=== PATIENT | male | born 1955 | race Caucasian/White ===

== ENCOUNTER 2022-10-12 18:02 | Inpatient (IN) ==
--- NOTE | 2022-10-12 18:12 | ED Triage Note ---
Date of Service October 12, 2022 History of Present Illness This patient was briefly evaluated while in triage. An abbreviated physical exam was performed. This patient is a 66-year-old Male who presents to the ED for evaluation of severe abdominal and rectal pain, diarrhea, pain in penis that all started tod ay. Can't pee since this afternoon. No fevers. No blood in stool or urine. No nausea or vomiting. History of prostate cancer, in remission. Physical Exam CONSTITUTIONAL: Appears very uncomfortable from pain, diaphoretic. RESPIRATORY: Clear to auscultation bilaterally. Equal expansion bilaterally. CARDIOVASCULAR: Regular rate and rhythm. GASTROINTESTINAL: TTP in lower abdomen. NEUROLOGIC: Alert and oriented X 4 with normal affect. Initial orders for labs and / or imaging were placed and patient was placed in the waiting area until a bed is available. Please see further documentation for the full ED course.
[2022-10-12 18:40] LABS: Basophils # (auto) 0.08 K/uL (0-0.2); Basophils % (auto) 0.7 %; Eosinophils # (auto) 0.19 K/uL (0-0.50); Eosinophils % (auto) 1.7 %; Hematocrit (blood only) 42.9 % (42.0-52.0); Hemoglobin 15.6 g/dl (14.0-18.0); Immature Granulocytes # (auto) 0.05 K/uL (0.01-0.20); Immature Granulocytes % (auto) 0.4 %; Lymphocytes # (auto) 2.57 K/uL (1.2-3.4); Lymphocytes % (auto) 22.4 %; Mean Corpuscular Hemoglobin 30.8 pg (25.0-34.0); Mean Corpuscular Hgb Conc 36.4 g/dL (32.0-36.0); Mean Corpuscular Volume 84.8 fL (80.0-100.0); Mean Platelet Volume 10.6 fL (9.4-12.4); Monocytes # (auto) 0.88 K/uL (0.11-0.59); Monocytes % (auto) 7.7 %; Neutrophils # (auto) 7.72 K/uL (1.40-6.50); Neutrophils % (auto) 67.1 %; Platelet Count 332 K/uL (130-400); RDW Standard Deviation 36.6 fL (36.4-46.3); Red Blood Count 5.06 M/uL (4.70-6.10); White Blood Count 11.49 K/ul (4.8-10.8)
[2022-10-12 19:15] LABS: Albumin Globulin Ratio 1.5 (0.9-2); Albumin Level 4.8 gm/dl (3.4-5.0); BUN Creatinine Ratio 13.5 (10-20); Bilirubin,Total 0.6 mg/dl (0.2-1.0); Calcium 9.7 mg/dl (8.6-10.3); Creatinine Clr Calc Pharmacy 46.2 ml/min; Est GFR (African American) 55.6 ml/min; Est GFR (Non-African American) 47.9 ml/min; Globulin 3.2 gm/dl (2.5-4.0); Potassium 4.1 mmol/L (3.5-5.1)
[2022-10-12] MEDS ORDERED: ONDANSETRON INJ 2 MG/ML 2 ML VIAL IV STA (19:41)
[2022-10-12] MEDS ORDERED: NovoLIN-R INSULIN PER UNIT CHARGE IV STA (19:41)
[2022-10-12] MEDS ORDERED: MoRPHine SULFATE 2 MG/ML CARP IV STA (19:41)
--- NOTE | 2022-10-12 19:47 | Emergency Department Note ---
History of Present Illness General Chief complaint: Abdominal Pain Stated complaint: ABDOMINAL PAIN Time Seen by Provider: 10/12/22 19:27 Source: patient, family (Son who is at the bedside), RN notes reviewed and old records reviewed Mode of arrival: ambulatory Limitations: no limitations History of Present Illness Maximum Pain Intensity: 10 This patient is a 66-year-old male who has history of prostate cancer in the past as well as diabetes, comes in after having urinary issues. He said that his felt like is been hard to get his stream started and today around 230 could get it going. He says if he bears down he will be able to get it. He is also had some loose stool and diarrhea. He stopped taking all of his medications about a month or so ago after losing 30 pounds. He has had no blood or melena stool . no chest pain. no shortness of breath. no fever chills .no back pain.. Home Medications Medication Instructions Recorded Confirmed Type Lactobacillus acidophilus 1.5 mg 1,000 mmu cells PO DAILY 11/08/19 10/12/22 History (250 million cell) capsule (Probiotic Acidophilus) ascorbic acid (vitamin C) 500 mg 500 mg PO DAILY 11/08/19 10/12/22 History tablet (Vitamin C) aspirin 81 mg tablet,delayed 81 mg PO DAILY 11/08/19 10/12/22 History release (Suma Low Dose Aspirin) atenolol 50 mg tablet 25 mg PO HS 11/08/19 10/12/22 History atorvastatin 40 mg tablet 40 mg PO QAM 11/08/19 10/12/22 History fish, borage, flaxseed oils-omega 1 cap PO DAILY 11/08/19 10/12/22 History 3,6,9 comb no.1 1,200 mg capsule (Jackson 3-6-9) vlrnfueegnh-ucf-xkrepkixa-vitC 1 cap PO DAILY 11/08/19 10/12/22 History capsule insulin aspart U-100 100 unit/mL 30 unit subcut BIDM 11/08/19 10/12/22 History (3 mL) subcutaneous pen (Novolog FlexPen U-100 Insulin aspart) insulin glargine 100 unit/mL 50 unit subcut QAM 11/08/19 10/12/22 History subcutaneous solution (Lantus U-100 Insulin) [id number]-ns-mtncs 300 mcg-K 60 1 tab PO DAILY 11/08/19 10/12/22 History mcg-lycop 600 mcg-lutein 300 mcg tablet (Centrum Silver Men) sildenafil 25 mg tablet (Viagra) 25 mg PO DAILY PRN Erectile 11/08/19 10/12/22 History Dysfunction sitagliptin phosphate 50 1 tab PO BID 11/08/19 10/12/22 History mg-metformin 1,000 mg tablet (Janumet) telmisartan 20 mg tablet 10 mg PO QAM 11/08/19 10/12/22 History zinc 50 mg tablet 50 mg PO DAILY 11/08/19 10/12/22 History Allergies Allergy/AdvReac Type Severity Reaction Status Date / Time hydrocodone AdvReac Unknown itching Verified 10/12/22 18:53 Past Med/Surg History Medical History Diabetes mellitus, type 2 IDDM Hx of brachytherapy Hyperlipidemia Hypertension Prostate CA Surgical History History of cardiac cath no stent. History of cholecystectomy History of herniorrhaphy inguinal (Left) History of right cataract surgery History of tonsillectomy S/P arthroscopy of shoulder left S/P left knee arthroscopy S/P right knee arthroscopy S/P right rotator cuff repair Family History Other No family history of adverse response to anesthesia Social History Smoking Status: Never smoker Tobacco Type: Cigarettes Second Hand Exposure: No; Do You Dip or Chew Tobacco: No; Hx Alcohol Use: Yes Hx Substance Use: No Preferred Language: Yakut Communication Ability: Effective Clinical Trials Data Coordinator Required: No Beliefs That Will Affect Care: None Current Living Situation: Alone Feels Safe at Home: Yes Assistive Devices: Glasses Review of Systems A total of 10 systems reviewed and were otherwise negative Physical Exam Vital Signs Vital Signs - 24 hr 10/12/22 18:07 10/12/22 18:15 10/12/22 18:15 Temperature 37 C Temperature Source Temporal Artery Scan Pulse Rate 70 111 H Pulse Rate [Left Finger] 111 H Pulse Rate from SpO2 Sensor Pulse Rhythm Regular Pulse Rhythm [Left Finger] Regular Pulse Strength [Left Finger] Normal Respiratory Rate 16 24 21 Respiratory Effort / Characteristics Non-Labored Non-Labored Spontaneous Respiratory Depth Normal Normal Respiratory Pattern Regular Blood Pressure 233/137 H Blood Pressure [Left Arm] 198/106 H Blood Pressure Mean 169 Blood Pressure Mean [Left Arm] 136 Blood Pressure Position [Left Arm] Lying Pulse Oximetry 96 97 97 Oxygen Delivery Method Room Air Room Air Sepsis Recent Fever Within 48 Hours No Sepsis New/Unexplained Change in Mental Status No Sepsis Action Taken by Nursing No Action Required 10/12/22 18:33 10/12/22 18:31 10/12/22 18:40 Temperature Temperature Source Pulse Rate 106 H 105 H 105 H Pulse Rate [Left Finger] Pulse Rate from SpO2 Sensor 105 H 105 H Pulse Rhythm Pulse Rhythm [Left Finger] Pulse Strength [Left Finger] Respiratory Rate 17 19 Respiratory Effort / Characteristics Respiratory Depth Respiratory Pattern Blood Pressure Blood Pressure [Left Arm] Blood Pressure Mean Blood Pressure Mean [Left Arm] Blood Pressure Position [Left Arm] Pulse Oximetry 97 97 Oxygen Delivery Method Sepsis Recent Fever Within 48 Hours Sepsis New/Unexplained Change in Mental Status Sepsis Action Taken by Nursing 10/12/22 18:50 10/12/22 19:00 10/12/22 19:00 Temperature Temperature Source Pulse Rate 104 H 103 H Pulse Rate [Left Finger] Pulse Rate from SpO2 Sensor 103 H 103 H Pulse Rhythm Pulse Rhythm [Left Finger] Pulse Strength [Left Finger] Respiratory Rate 21 23 Respiratory Effort / Characteristics Respiratory Depth Respiratory Pattern Blood Pressure 178/99 H Blood Pressure [Left Arm] Blood Pressure Mean 118 Blood Pressure Mean [Left Arm] Blood Pressure Position [Left Arm] Pulse Oximetry 97 96 Oxygen Delivery Method Sepsis Recent Fever Within 48 Hours Sepsis New/Unexplained Change in Mental Status Sepsis Action Taken by Nursing 10/12/22 19:10 10/12/22 19:20 10/12/22 19:30 Temperature Temperature Source Pulse Rate 104 H 105 H Pulse Rate [Left Finger] Pulse Rate from SpO2 Sensor 104 H 104 H Pulse Rhythm Pulse Rhythm [Left Finger] Pulse Strength [Left Finger] Respiratory Rate 18 20 Respiratory Effort / Characteristics Respiratory Depth Respiratory Pattern Blood Pressure 162/96 H Blood Pressure [Left Arm] Blood Pressure Mean 126 Blood Pressure Mean [Left Arm] Blood Pressure Position [Left Arm] Pulse Oximetry 95 97 Oxygen Delivery Method Sepsis Recent Fever Within 48 Hours Sepsis New/Unexplained Change in Mental Status Sepsis Action Taken by Nursing 10/12/22 19:30 10/12/22 19:40 10/12/22 19:50 Temperature Temperature Source Pulse Rate 105 H 105 H 99 H Pulse Rate [Left Finger] Pulse Rate from SpO2 Sensor 104 H Pulse Rhythm Pulse Rhythm [Left Finger] Pulse Strength [Left Finger] Respiratory Rate 32 H 24 21 Respiratory Effort / Characteristics Respiratory Depth Respiratory Pattern Blood Pressure Blood Pressure [Left Arm] Blood Pressure Mean Blood Pressure Mean [Left Arm] Blood Pressure Position [Left Arm] Pulse Oximetry 97 Oxygen Delivery Method Sepsis Recent Fever Within 48 Hours Sepsis New/Unexplained Change in Mental Status Sepsis Action Taken by Nursing 10/12/22 20:00 10/12/22 20:01 10/12/22 20:01 Temperature Temperature Source Pulse Rate 102 H 99 H Pulse Rate [Left Finger] Pulse Rate from SpO2 Sensor Pulse Rhythm Pulse Rhythm [Left Finger] Pulse Strength [Left Finger] Respiratory Rate 18 22 Respiratory Effort / Characteristics Respiratory Depth Respiratory Pattern Blood Pressure 155/102 H Blood Pressure [Left Arm] Blood Pressure Mean 124 Blood Pressure Mean [Left Arm] Blood Pressure Position [Left Arm] Pulse Oximetry Oxygen Delivery Method Sepsis Recent Fever Within 48 Hours Sepsis New/Unexplained Change in Mental Status Sepsis Action Taken by Nursing 10/12/22 21:06 10/12/22 21:07 10/12/22 21:07 Temperature Temperature Source Pulse Rate 103 H Pulse Rate [Left Finger] Pulse Rate from SpO2 Sensor 104 H 103 H Pulse Rhythm Pulse Rhythm [Left Finger] Pulse Strength [Left Finger] Respiratory Rate 24 Respiratory Effort / Characteristics Respiratory Depth Respiratory Pattern Blood Pressure 176/89 H Blood Pressure [Left Arm] Blood Pressure Mean 115 Blood Pressure Mean [Left Arm] Blood Pressure Position [Left Arm] Pulse Oximetry 97 96 Oxygen Delivery Method Sepsis Recent Fever Within 48 Hours Sepsis New/Unexplained Change in Mental Status Sepsis Action Taken by Nursing 10/12/22 21:10 10/12/22 21:38 10/12/22 22:50 Temperature Temperature Source Pulse Rate 105 H 100 H 81 Pulse Rate [Left Finger] Pulse Rate from SpO2 Sensor 104 H Pulse Rhythm Pulse Rhythm [Left Finger] Pulse Strength [Left Finger] Respiratory Rate 20 Respiratory Effort / Characteristics Respiratory Depth Respiratory Pattern Blood Pressure 154/88 H Blood Pressure [Left Arm] Blood Pressure Mean Blood Pressure Mean [Left Arm] Blood Pressure Position [Left Arm] Pulse Oximetry 97 Oxygen Delivery Method Sepsis Recent Fever Within 48 Hours Sepsis New/Unexplained Change in Mental Status Sepsis Action Taken by Nursing General: Well developed well nourished older male who appears in no acute distress, breathing comfortably on room air. Normal speech HEENT: Normal cephalic atraumatic. Pupils are equal round and reactive to light. Extraocular movements are intact. Oropharynx is pink with moist mucous membranes. No swelling of the mouth lips or tongue. Neck: Supple with a midline trachea. No meningeal signs or stiffness, no JVD or bruits. No Stridor. Chest: Clear to auscultation bilaterally. No wheezes or rhonchi. No increased work of breathing. Heart: Regular rate and rhythm without murmurs or gallops. Abdomen: Soft nontender, nondistended without rebound guarding or rigidity. Thornton catheter in place. There is a large amount of yellowish clear urine in the bag greater than 1 L Extremities: No cyanosis clubbing or edema. No calf tenderness or assymetry Spine/Back. Non tender to palpation. No CVA tenderness Skin: Good turgor without rashes. Neurologic exam: Cranial nerves two through 12 are intact. Motor and sensation are intact and symmetrical throughout. Course Administered Medications Insulin Human Regular 250 (units/ Sodium Chloride) 250 mls @ 7.7 mls/hr IV .Q24H [facility]; Protocol Stop: 11/11/22 23:44 Last Admin: 10/12/22 23:56 Dose: 7.7 units/hr, 7.7 mls/hr Documented By: MARY Co-signed By: LUISA Sodium Chloride (Nss 1000ml) 1,000 mls @ 200 mls/hr IV .Q5H ONE Stop: 10/13/22 05:02 Last Admin: 10/13/22 00:33 Dose: 200 mls/hr Documented By: MARY Discontinued Medications Sodium Chloride (Nss 1000ml) 1,000 mls @ 999 mls/hr IV .Q1H1M RADHA Stop: 10/12/22 23:19 Last Infusion: 10/13/22 00:15 Dose: 0 mls/hr Documented By: Admin: 10/12/22 22:44 Dose: 999 mls/hr Documented By: Infusion: 10/12/22 22:44 Dose: 999 mls/hr Documented By: Admin: 10/12/22 21:43 Dose: 999 mls/hr Documented By: PAMELA Cefepime HCl (Maxipime) 2,000 mg in 20 mls @ 5 mls/min IV NOW STA; Protocol Stop: 10/12/22 21:26 Last Admin: 10/12/22 21:38 Dose: 5 mls/min Documented By: HO[employer]LE K[employer]IFE ASSEMBLER Insulin Human Regular (Novolin-R Insulin Per Unit Charge) 10 units IV NOW STA Stop: 10/12/22 19:42 Last Admin: 10/12/22 19:52 Dose: 10 units Documented By: PAMELA Co-signed By: SYLVIA Insulin Human Regular (Novolin-R Bolus From Bag) 7.7 units IV ONE ONE Stop: 10/12/22 23:46 Last Admin: 10/13/22 00:01 Dose: 7.7 units Documented By: MARY Co-signed By: LUISA Metoprolol Tartrate (Metoprolol Tartrate 1 Mg/Ml Vial) 2.5 mg IV NOW STA Stop: 10/12/22 20:04 Last Admin: 10/12/22 21:13 Dose: Not Given Documented By: HO[employer]LE [employer] ASSEMBLER Metoprolol Tartrate (Metoprolol Tartrate 1 Mg/Ml Vial) 2.5 mg IV NOW STA Stop: 10/12/22 21:19 Last Admin: 10/12/22 21:38 Dose: 2.5 mg Documented By: HO[employer]LE [employer] ASSEMBLER Morphine Sulfate (Morphine Sulfate 2 Mg/Ml Carp) 2 mg IV NOW STA Stop: 10/12/22 19:42 Last Admin: 10/12/22 19:52 Dose: 2 mg Documented By: HO[employer] HANDLE KNIFE ASSEMBLER Morphine Sulfate (Morphine Sulfate 4 Mg/Ml 1 Ml Carp\Vial) 4 mg IV NOW STA Stop: 10/12/22 21:21 Last Admin: 10/12/22 21:38 Dose: 4 mg Documented By: HO[employer]IFE ASSEMBLER Ondansetron HCl (Ondansetron Inj 2 Mg/Ml 2 Ml Vial) 4 mg IV NOW STA Stop: 10/12/22 19:42 Last Admin: 10/12/22 19:52 Dose: 4 mg Documented By: HO[employer]IFE ASSEM[employer]ER Phenazopyridine HCl (Phenazopyridine Hcl 100 Mg Tab) 100 mg PO NOW STA Stop: 10/12/22 22:47 Last Admin: 10/12/22 22:59 Dose: 100 mg Documented By: MARY Medical Decision Making Differential Diagnosis Urinary retention, infection, prostate cancer complication, DKA, HH NC, hyperglycemia, electrolyte or metabolic abnormality, infection Medical Records Attestation: I reviewed the patient's medical records. Home Medications Current Medication List: was personally reviewed by me Laboratory Data Attestation: I reviewed the patient's lab results. 10/12/22 18:20 10/12/22 18:20 Lab Results 10/12/22 10/12/22 10/12/22 Range/Units 18:20 18:20 18:20 WBC 11.49 H (4.8-10.8) K/ul RBC 5.06 (4.70-6.10) M/uL Hgb 15.6 (14.0-18.0) g/dl Hct 42.9 (42.0-52.0) % MCV 84.8 (80.0-100.0) fL MCH 30.8 (25.0-34.0) pg MCHC 36.4 H (32.0-36.0) g/dL RDW Std Deviation 36.6 (36.4-46.3) fL RDW Coeff of Myron 12.0 (11.5-14.5) % Plt Count 332 (130-400) K/uL MPV 10.6 (9.4-12.4) fL Immature Gran % (Auto) 0.4 % Neut % (Auto) 67.1 % Lymph % (Auto) 22.4 % Kay % (Auto) 7.7 % Eos % (Auto) 1.7 % Baso % (Auto) 0.7 % Neut # (Auto) 7.72 H (1.40-6.50) K/uL Lymph # (Auto) 2.57 (1.2-3.4) K/uL Kay # (Auto) 0.88 H (0.11-0.59) K/uL Eos # (Auto) 0.19 (0-0.50) K/uL Baso # (Auto) 0.08 (0-0.2) K/uL Immature Gran # (Auto) 0.05 (0.01-0.20) K/uL VBG pH (7.36-7.41) VBG pCO2 (38-50) mmHg VBG pO2 mmHg VBG HCO3 mmol/L VBG O2 Saturation % VBG Base Excess mEq/L Sodium 127 L (136-145) mmol/L Potassium 4.1 (3.5-5.1) mmol/L Chloride 92 L (98-107) mmol/L Carbon Dioxide 16 L (21-32) mmol/L Anion Gap 19 H (3-11) BUN 20 (6-23) mg/dl Creatinine 1.48 H (0.6-1.4) mg/dl Est Cr Clr Drug Dosing 46.2 ml/min Est GFR ( Amer) 55.6 ml/min Est GFR (Non-Af Amer) 47.9 ml/min BUN/Creatinine Ratio 13.5 (10-20) Glucose 828 H* (70-99(Fasting)) mg/dl POC Glucose (70-99) mg/dl Estimat Average Glucose mg/dl Hemoglobin A1c (4.5-5.6) % Osmolality 331 H (280-300) mOsm/kg Lactate (0.4-2.0) mmol/L Calcium 9.7 (8.6-10.3) mg/dl Magnesium 2.0 (1.7-2.4) mg/dl Total Bilirubin 0.6 (0.2-1.0) mg/dl AST 12 L (13-39) U/L ALT 13 (7-52) U/L Alkaline Phosphatase 136 H (34-104) U/L Total Protein 8.0 (6.0-8.3) gm/dl Albumin 4.8 (3.4-5.0) gm/dl Globulin 3.2 (2.5-4.0) gm/dl Albumin/Globulin Ratio 1.5 (0.9-2) Lipase 32 (11-82) U/L Procalcitonin (0-0.5) ng/ml TSH (0.300-4.500) uIu/ml Urine Color Urine Appearance (Clear) Urine pH (4.5-7.5) Ur Specific Grant (1.000-1.030) Urine Protein (Negative) Urine Glucose (UA) (Negative) Urine Ketones (Negative) Urine Blood (Negative) Urine Nitrite (Negative) Urine Bilirubin (Negative) Urine Urobilinogen (Negative) Ur Leukocyte Esterase (Negative) Urine WBC (Auto) (0-5) /hpf Urine RBC (Auto) (0-4) /hpf U Hyaline Cast (Auto) (0-5) /lpf U Epithel Cells (Auto) (0-5) /lpf Urine Bacteria (Auto) (Negative) Urine Yeast Urine Osmolality (500-800) mOsm/kg Ur Random Sodium mmol/L SARS-CoV-2, RNA, NAAT (NEGATIVE) 10/12/22 10/12/22 10/12/22 Range/Units 18:20 18:20 18:20 WBC (4.8-10.8) K/ul RBC (4.70-6.10) M/uL Hgb (14.0-18.0) g/dl Hct (42.0-52.0) % MCV (80.0-100.0) fL MCH (25.0-34.0) pg MCHC (32.0-36.0) g/dL RDW Std Deviation (36.4-46.3) fL RDW Coeff of Myron (11.5-14.5) % Plt Count (130-400) K/uL MPV (9.4-12.4) fL Immature Gran % (Auto) % Neut % (Auto) % Lymph % (Auto) % Kay % (Auto) % Eos % (Auto) % Baso % (Auto) % Neut # (Auto) (1.40-6.50) K/uL Lymph # (Auto) (1.2-3.4) K/uL Kay # (Auto) (0.11-0.59) K/uL Eos # (Auto) (0-0.50) K/uL Baso # (Auto) (0-0.2) K/uL Immature Gran # (Auto) (0.01-0.20) K/uL VBG pH (7.36-7.41) VBG pCO2 (38-50) mmHg VBG pO2 mmHg VBG HCO3 mmol/L VBG O2 Saturation % VBG Base Excess mEq/L Sodium (136-145) mmol/L Potassium (3.5-5.1) mmol/L Chloride (98-107) mmol/L Carbon Dioxide (21-32) mmol/L Anion Gap (3-11) BUN (6-23) mg/dl Creatinine (0.6-1.4) mg/dl Est Cr Clr Drug Dosing ml/min Est GFR ( Amer) ml/min Est GFR (Non-Af Amer) ml/min BUN/Creatinine Ratio (10-20) Glucose (70-99(Fasting)) mg/dl POC Glucose (70-99) mg/dl Estimat Average Glucose 372 mg/dl Hemoglobin A1c 14.6 H (4.5-5.6) % Osmolality (280-300) mOsm/kg Lactate (0.4-2.0) mmol/L Calcium (8.6-10.3) mg/dl Magnesium (1.7-2.4) mg/dl Total Bilirubin (0.2-1.0) mg/dl AST (13-39) U/L ALT (7-52) U/L Alkaline Phosphatase (34-104) U/L Total Protein (6.0-8.3) gm/dl Albumin (3.4-5.0) gm/dl Globulin (2.5-4.0) gm/dl Albumin/Globulin Ratio (0.9-2) Lipase (11-82) U/L Procalcitonin 0.07 (0-0.5) ng/ml TSH 0.506 (0.300-4.500) uIu/ml Urine Color Urine Appearance (Clear) Urine pH (4.5-7.5) Ur Specific Grant (1.000-1.030) Urine Protein (Negative) Urine Glucose (UA) (Negative) Urine Ketones (Negative) Urine Blood (Negative) Urine Nitrite (Negative) Urine Bilirubin (Negative) Urine Urobilinogen (Negative) Ur Leukocyte Esterase (Negative) Urine WBC (Auto) (0-5) /hpf Urine RBC (Auto) (0-4) /hpf U Hyaline Cast (Auto) (0-5) /lpf U Epithel Cells (Auto) (0-5) /lpf Urine Bacteria (Auto) (Negative) Urine Yeast Urine Osmolality (500-800) mOsm/kg Ur Random Sodium mmol/L SARS-CoV-2, RNA, NAAT (NEGATIVE) 10/12/22 10/12/22 10/12/22 Range/Units 19:37 19:37 20:00 WBC (4.8-10.8) K/ul RBC (4.70-6.10) M/uL Hgb (14.0-18.0) g/dl Hct (42.0-52.0) % MCV (80.0-100.0) fL MCH (25.0-34.0) pg MCHC (32.0-36.0) g/dL RDW Std Deviation (36.4-46.3) fL RDW Coeff of Myron (11.5-14.5) % Plt Count (130-400) K/uL MPV (9.4-12.4) fL Immature Gran % (Auto) % Neut % (Auto) % Lymph % (Auto) % Kay % (Auto) % Eos % (Auto) % Baso % (Auto) % Neut # (Auto) (1.40-6.50) K/uL Lymph # (Auto) (1.2-3.4) K/uL Kay # (Auto) (0.11-0.59) K/uL Eos # (Auto) (0-0.50) K/uL Baso # (Auto) (0-0.2) K/uL Immature Gran # (Auto) (0.01-0.20) K/uL VBG pH 7.44 H (7.36-7.41) VBG pCO2 31 L (38-50) mmHg VBG pO2 38 mmHg VBG HCO3 21 mmol/L VBG O2 Saturation 60.7 % VBG Base Excess -2.1 mEq/L Sodium (136-145) mmol/L Potassium (3.5-5.1) mmol/L Chloride (98-107) mmol/L Carbon Dioxide (21-32) mmol/L Anion Gap (3-11) BUN (6-23) mg/dl Creatinine (0.6-1.4) mg/dl Est Cr Clr Drug Dosing ml/min Est GFR ( Amer) ml/min Est GFR (Non-Af Amer) ml/min BUN/Creatinine Ratio (10-20) Glucose (70-99(Fasting)) mg/dl POC Glucose (70-99) mg/dl Estimat Average Glucose mg/dl Hemoglobin A1c (4.5-5.6) % Osmolality (280-300) mOsm/kg Lactate 5.5 H* (0.4-2.0) mmol/L Calcium (8.6-10.3) mg/dl Magnesium (1.7-2.4) mg/dl Total Bilirubin (0.2-1.0) mg/dl AST (13-39) U/L ALT (7-52) U/L Alkaline Phosphatase (34-104) U/L Total Protein (6.0-8.3) gm/dl Albumin (3.4-5.0) gm/dl Globulin (2.5-4.0) gm/dl Albumin/Globulin Ratio (0.9-2) Lipase (11-82) U/L Procalcitonin (0-0.5) ng/ml TSH (0.300-4.500) uIu/ml Urine Color Yellow Urine Appearance Clear (Clear) Urine pH 5.5 (4.5-7.5) Ur Specific Grant 1.033 H (1.000-1.030) Urine Protein Trace H (Negative) Urine Glucose (UA) 3+ H (Negative) Urine Ketones Trace H (Negative) Urine Blood 3+ H (Negative) Urine Nitrite Negative (Negative) Urine Bilirubin Negative (Negative) Urine Urobilinogen Negative (Negative) Ur Leukocyte Esterase 1+ H (Negative) Urine WBC (Auto) >30 H (0-5) /hpf Urine RBC (Auto) >30 H (0-4) /hpf U Hyaline Cast (Auto) 1-5 (0-5) /lpf U Epithel Cells (Auto) 0-5 (0-5) /lpf Urine Bacteria (Auto) Negative (Negative) Urine Yeast Not Reportable Urine Osmolality (500-800) mOsm/kg Ur Random Sodium mmol/L SARS-CoV-2, RNA, NAAT (NEGATIVE) 10/12/22 10/12/22 10/12/22 Range/Units 20:00 20:00 20:00 WBC (4.8-10.8) K/ul RBC (4.70-6.10) M/uL Hgb (14.0-18.0) g/dl Hct (42.0-52.0) % MCV (80.0-100.0) fL MCH (25.0-34.0) pg MCHC (32.0-36.0) g/dL RDW Std Deviation (36.4-46.3) fL RDW Coeff of Myron (11.5-14.5) % Plt Count (130-400) K/uL MPV (9.4-12.4) fL Immature Gran % (Auto) % Neut % (Auto) % Lymph % (Auto) % Kay % (Auto) % Eos % (Auto) % Baso % (Auto) % Neut # (Auto) (1.40-6.50) K/uL Lymph # (Auto) (1.2-3.4) K/uL Kay # (Auto) (0.11-0.59) K/uL Eos # (Auto) (0-0.50) K/uL Baso # (Auto) (0-0.2) K/uL Immature Gran # (Auto) (0.01-0.20) K/uL VBG pH (7.36-7.41) VBG pCO2 (38-50) mmHg VBG pO2 mmHg VBG HCO3 mmol/L VBG O2 Saturation % VBG Base Excess mEq/L Sodium (136-145) mmol/L Potassium (3.5-5.1) mmol/L Chloride (98-107) mmol/L Carbon Dioxide (21-32) mmol/L Anion Gap (3-11) BUN (6-23) mg/dl Creatinine (0.6-1.4) mg/dl Est Cr Clr Drug Dosing ml/min Est GFR ( Amer) ml/min Est GFR (Non-Af Amer) ml/min BUN/Creatinine Ratio (10-20) Glucose (70-99(Fasting)) mg/dl POC Glucose (70-99) mg/dl Estimat Average Glucose mg/dl Hemoglobin A1c (4.5-5.6) % Osmolality (280-300) mOsm/kg Lactate (0.4-2.0) mmol/L Calcium (8.6-10.3) mg/dl Magnesium (1.7-2.4) mg/dl Total Bilirubin (0.2-1.0) mg/dl AST (13-39) U/L ALT (7-52) U/L Alkaline Phosphatase (34-104) U/L Total Protein (6.0-8.3) gm/dl Albumin (3.4-5.0) gm/dl Globulin (2.5-4.0) gm/dl Albumin/Globulin Ratio (0.9-2) Lipase (11-82) U/L Procalcitonin (0-0.5) ng/ml TSH (0.300-4.500) uIu/ml Urine Color Urine Appearance (Clear) Urine pH (4.5-7.5) Ur Specific Grant (1.000-1.030) Urine Protein (Negative) Urine Glucose (UA) (Negative) Urine Ketones (Negative) Urine Blood (Negative) Urine Nitrite (Negative) Urine Bilirubin (Negative) Urine Urobilinogen (Negative) Ur Leukocyte Esterase (Negative) Urine WBC (Auto) (0-5) /hpf Urine RBC (Auto) (0-4) /hpf U Hyaline Cast (Auto) (0-5) /lpf U Epithel Cells (Auto) (0-5) /lpf Urine Bacteria (Auto) (Negative) Urine Yeast Urine Osmolality 568 (500-800) mOsm/kg Ur Random Sodium 29 mmol/L SARS-CoV-2, RNA, NAAT NEGATIVE (NEGATIVE) 10/12/22 Range/Units 21:10 WBC (4.8-10.8) K/ul RBC (4.70-6.10) M/uL Hgb (14.0-18.0) g/dl Hct (42.0-52.0) % MCV (80.0-100.0) fL MCH (25.0-34.0) pg MCHC (32.0-36.0) g/dL RDW Std Deviation (36.4-46.3) fL RDW Coeff of Myron (11.5-14.5) % Plt Count (130-400) K/uL MPV (9.4-12.4) fL Immature Gran % (Auto) % Neut % (Auto) % Lymph % (Auto) % Kay % (Auto) % Eos % (Auto) % Baso % (Auto) % Neut # (Auto) (1.40-6.50) K/uL Lymph # (Auto) (1.2-3.4) K/uL Kay # (Auto) (0.11-0.59) K/uL Eos # (Auto) (0-0.50) K/uL Baso # (Auto) (0-0.2) K/uL Immature Gran # (Auto) (0.01-0.20) K/uL VBG pH (7.36-7.41) VBG pCO2 (38-50) mmHg VBG pO2 mmHg VBG HCO3 mmol/L VBG O2 Saturation % VBG Base Excess mEq/L Sodium (136-145) mmol/L Potassium (3.5-5.1) mmol/L Chloride (98-107) mmol/L Carbon Dioxide (21-32) mmol/L Anion Gap (3-11) BUN (6-23) mg/dl Creatinine (0.6-1.4) mg/dl Est Cr Clr Drug Dosing ml/min Est GFR ( Amer) ml/min Est GFR (Non-Af Amer) ml/min BUN/Creatinine Ratio (10-20) Glucose (70-99(Fasting)) mg/dl POC Glucose 479 H* (70-99) mg/dl Estimat Average Glucose mg/dl Hemoglobin A1c (4.5-5.6) % Osmolality (280-300) mOsm/kg Lactate (0.4-2.0) mmol/L Calcium (8.6-10.3) mg/dl Magnesium (1.7-2.4) mg/dl Total Bilirubin (0.2-1.0) mg/dl AST (13-39) U/L ALT (7-52) U/L Alkaline Phosphatase (34-104) U/L Total Protein (6.0-8.3) gm/dl Albumin (3.4-5.0) gm/dl Globulin (2.5-4.0) gm/dl Albumin/Globulin Ratio (0.9-2) Lipase (11-82) U/L Procalcitonin (0-0.5) ng/ml TSH (0.300-4.500) uIu/ml Urine Color Urine Appearance (Clear) Urine pH (4.5-7.5) Ur Specific Grant (1.000-1.030) Urine Protein (Negative) Urine Glucose (UA) (Negative) Urine Ketones (Negative) Urine Blood (Negative) Urine Nitrite (Negative) Urine Bilirubin (Negative) Urine Urobilinogen (Negative) Ur Leukocyte Esterase (Negative) Urine WBC (Auto) (0-5) /hpf Urine RBC (Auto) (0-4) /hpf U Hyaline Cast (Auto) (0-5) /lpf U Epithel Cells (Auto) (0-5) /lpf Urine Bacteria (Auto) (Negative) Urine Yeast Urine Osmolality (500-800) mOsm/kg Ur Random Sodium mmol/L SARS-CoV-2, RNA, NAAT (NEGATIVE) Imaging Data Attestation: I personally reviewed and interpreted this imaging study as follows: My Impression: CT stone studyno obstructive uropathy seen Radiologist's Impression: Abdomen/Pelvis CT 10/12/22 19:42 Exam(s): CT ABDOMEN + PELVIS Without Contrast EXAM: CT Abdomen and Pelvis Without Intravenous Contrast CLINICAL HISTORY: Reason for exam: urinary retention, eval for obs uropathy. TECHNIQUE: Axial computed tomography images of the abdomen and pelvis without intravenous contrast. CTDI is 20.05 mGy and DLP is 948.03 mGy-cm. Automated exposure control was utilized for the study. A dose lowering technique was utilized adhering to the principles of ALARA. COMPARISON: No relevant prior studies available. FINDINGS: Lung bases: Unremarkable. No mass. No consolidation. ABDOMEN: Liver: Unremarkable. Gallbladder and bile ducts: Cholecystectomy. No ductal dilation. Pancreas: Unremarkable. No ductal dilation. Spleen: Unremarkable. No splenomegaly. Adrenals: Unremarkable. No mass. Kidneys and ureters: Unremarkable. No obstructing stones. No hydronephrosis. Stomach and bowel: Diverticulosis, without acute diverticulitis. No small bowel obstruction. No free intraperitoneal air. PELVIS: Appendix: Normal appendix. Bladder: Thornton catheter terminates in a decompressed urinary bladder with mild wall thickening. Correlate with urinalysis to exclude UTI. No stones. Reproductive: Prostate fiduciary markers. ABDOMEN and PELVIS: Intraperitoneal space: Unremarkable. No free air. No significant fluid collection. Bones/joints: Degenerative changes of the spine. No acute fracture. No dislocation. Soft tissues: Unremarkable. Vasculature: Atherosclerotic changes of the aorta. No abdominal aortic aneurysm. Lymph nodes: Unremarkable. No enlarged lymph nodes. IMPRESSION: 1. Normal appendix. 2. Thornton catheter terminates in a decompressed urinary bladder with mild wall thickening. Correlate with urinalysis to exclude UTI. 3. Cholecystectomy. 4. Diverticulosis, without acute diverticulitis. No small bowel obstruction. No free intraperitoneal air. Electronically signed by: Nelson Sung MD 10/12/22 21:54 PM [facility] Narrative This patient comes in as described above. He was placed in room B9. The nurse asked me to see him as he was having a lot of pain his blood sugar was 838. He is having some discomfort where the catheter is appears to be drained at this point. I did give him morphine 2 mg IV and Zofran 4 mg IV for pain and nausea management. I Also ordered 1 L IV normal saline bolus and 10 units of insulin insulin IV to be given to help lower his blood sugar. A VBG was added. His white count is mildly elevated. He does have acidosis and likely has a degree of DKA. I do think he will need to be admitted. I have COVID tested him and also ordered a CAT scan. The patient's blood sugar is trending downward and is in the 400s. CAT scan does not show any acute abnormality or infection. COVID testing was negative.. VBG shows a normal pH. I do think that he needs to be admitted/evaluated for further blood sugar management. His lactic acid was elevated at 5.5 which I think was most likely from stress and dehydration and it is trending downward significantly at 2.4 upon reevaluation. Pernell consulted and discussed case Dr. Garcia who saw the patient in ER for these Continuous manager presentation: Orders placed in EMR for continuous cardiac monitoring: Upon my evaluation patient noted to be normal sinus rhythm rate of 90 upon reevaluation it is trending downward significantly at 2.4. Impression & Plan DKA (diabetic ketoacidosis), Acute urinary retention, History of prostate cancer, Acute dehydration, Elevated lactic acid level, Lab test negative for COVID-19 virus Discharge Plan Visit Data Chief Complaint: Abdominal Pain Stated Complaint: ABDOMINAL PAIN ED Provider: Andrea Colon Discharge Problem: DKA (diabetic ketoacidosis), Acute urinary retention, History of prostate cancer, Acute dehydration, Elevated lactic acid level, Lab test negative for COVID-19 virus Discharge Instructions Interventions: ED Discharge Assessment Last Done: 10/13/22 00:08
[2022-10-12 19:53] LABS: Base Excess VBG -2.1 mEq/L; HCO3 VBG 21 mmol/L; Oxygen Saturation VBG 60.7 %; PCO2 VBG 31 mmHg (38-50); PO2 VBG 38 mmHg; pH VBG 7.44 (7.36-7.41)
[2022-10-12] MEDS ORDERED: METOPROLOL TARTRATE 1 MG/ML VIAL IV STA ×2 (20:03→21:18)
[2022-10-12 20:16] LABS: Appearance Urine Clear (Clear); Bacteria Urine Automated Negative (Negative); Bilirubin Urine Negative (Negative); Blood Urine 3+ (Negative); Color Urine Yellow; Epithelial Cell Urine Auto 0-5 /lpf (0-5); Glucose Urine UA 3+ (Negative); Ketones Urine Trace (Negative); Leukocyte Esterase Urine 1+ (Negative); Nitrite Urine Negative (Negative); Protein Urine Trace (Negative); Specific Gravity Urine 1.033 (1.000-1.030); Urobilinogen Urine Negative (Negative); WBC Urine Automated >30 /hpf (0-5); pH Urine 5.5 (4.5-7.5)
[2022-10-12 20:31] LABS: RBC Urine Automated >30 /hpf (0-4)
[2022-10-12 20:42] LABS: Estimated Average Glucose 372 mg/dl; Hemoglobin A1C 14.6 % (4.5-5.6)
[2022-10-12] MEDS ORDERED: oxyCODONE HCL IR 5 MG TAB (IMMEDIATE RELEASE) PO PRN (21:20)
[2022-10-12] MEDS ORDERED: PROMETHAZINE HCL 12.5 MG in SODIUM CHLORIDE 0.9% 50 ML IV PRN (21:20)
[2022-10-12] MEDS ORDERED: MoRPHine SULFATE 4 MG/ML 1 ML CARP\\VIAL IV STA (21:20)
[2022-10-12] MEDS ORDERED: CEFEPIME 2,000 MG/20 ML VIAL IV STA (21:23)
[2022-10-12] MEDS: SODIUM CHLORIDE 0.9% 1000ML 1,000 ML IV SCH ×2 (21:43→22:44)
--- NOTE | 2022-10-12 21:56 | CT Scan Report ---
Exam(s): CT ABDOMEN + PELVIS Without Contrast EXAM: CT Abdomen and Pelvis Without Intravenous Contrast CLINICAL HISTORY: Reason for exam: urinary retention, eval for obs uropathy. TECHNIQUE: Axial computed tomography images of the abdomen and pelvis without intravenous contrast. CTDI is 20.05 mGy and DLP is 948.03 mGy-cm. Automated exposure control was utilized for the study. A dose lowering technique was utilized adhering to the principles of ALARA. COMPARISON: No relevant prior studies available. FINDINGS: Lung bases: Unremarkable. No mass. No consolidation. ABDOMEN: Liver: Unremarkable. Gallbladder and bile ducts: Cholecystectomy. No ductal dilation. Pancreas: Unremarkable. No ductal dilation. Spleen: Unremarkable. No splenomegaly. Adrenals: Unremarkable. No mass. Kidneys and ureters: Unremarkable. No obstructing stones. No hydronephrosis. Stomach and bowel: Diverticulosis, without acute diverticulitis. No small bowel obstruction. No free intraperitoneal air. PELVIS: Appendix: Normal appendix. Bladder: Thornton catheter terminates in a decompressed urinary bladder with mild wall thickening. Correlate with urinalysis to exclude UTI. No stones. Reproductive: Prostate fiduciary markers. ABDOMEN and PELVIS: Intraperitoneal space: Unremarkable. No free air. No significant fluid collection. Bones/joints: Degenerative changes of the spine. No acute fracture. No dislocation. Soft tissues: Unremarkable. Vasculature: Atherosclerotic changes of the aorta. No abdominal aortic aneurysm. Lymph nodes: Unremarkable. No enlarged lymph nodes. IMPRESSION: 1. Normal appendix. 2. Thornton catheter terminates in a decompressed urinary bladder with mild wall thickening. Correlate with urinalysis to exclude UTI. 3. Cholecystectomy. 4. Diverticulosis, without acute diverticulitis. No small bowel obstruction. No free intraperitoneal air. Electronically signed by: Nelson Sung MD 10/12/22 21:54 PM
[2022-10-12] MEDS ORDERED: PHENAZOPYRIDINE HCL 100 MG TAB PO STA (22:46)
[2022-10-12] MEDS ORDERED: LORazepam 0.5 MG TAB PO PRN (22:48)
[2022-10-12] MEDS ORDERED: HYDROmorphone INJ 0.5 MG/0.5 ML SYR IV PRN (22:48)
--- NOTE | 2022-10-12 22:48 | History & Physical Report ---
Date of Service October 12, 2022 Assessment & Plan (1) Hyperglycemic crisis in diabetes mellitus: Plan: HHS/mild DKA combo History DM 2 insulin requiring, medical noncompliance Current hemoglobin A1c of 14.6 Severe sepsis (SIRS plus lactic acidosis plus ARF from complicated UTI contributory factor to hyperglycemic crisis AGMA secondary to above Hypertensive crisis secondary to discomfort/illness/medical noncompliance hx nonocclusive CAD hyperlipidemia, was on statin medications a few months ago hx prostate cancer sp radiation Medical telemetry IV insulin, IVF Pharmacy glycemic control consultation, DM education Monitor creatinine, lactic acid response to IVF CS, Cefepime Urology consult Re: Urinary retention IV Lopressor 1 dose now for hypertensive crisis Resume patient home beta-idalia and eventually prior home ARB rx once creatinine within normal limits Patient amenable to resuming aspirin and statin medications for secondary CAD prevention. DVT prophylaxis. Lovenox subcu Full code Total critical care time was 45 minutes. Text document was generated using [employer] voice recognition software. It may contain grammatical or spelling errors. Kindly contact undersigned for clarification of any documentation item in question. History of Present Illness Chief Complaint: Urinary retention, bladder/penile pain Primary Care Provider: Dipak Pinedo MD History obtained from patient, family, and records. Medical history significant for nonocclusive CAD, hypertension, hyperlipidemia, DM 2 insulin requiring, prostate cancer postradiation, anxiety disorder, medication noncompliance. Patient stopped taking all his medications 3 months ago due to financial constraints and political reasons. He thought he could stop his insulin because he had significant weight loss few months ago. Patient noted worsening urinary retention today. Urinary retention usually relieved by bearing down on the commode. Usual loose stools. No headache, no chest pain, no SOB. Worsening dysuria. No hematuria. Patient felt warm. SBP to 230s upon arrival at the ER. BSG noted to be 800s at the ER. IV insulin initiated at the ER. Thornton catheter inserted after bladder residual noted to be greater than 800 cc. 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 Allergies Allergy/AdvReac Type Severity Reaction Status Date / Time hydrocodone AdvReac Unknown itching Verified 10/12/22 18:53 Home Medications Medication Instructions Recorded Confirmed Type Lactobacillus acidophilus 1.5 mg 1,000 mmu cells PO DAILY 11/08/19 10/12/22 History (250 million cell) capsule (Probiotic Acidophilus) ascorbic acid (vitamin C) 500 mg 500 mg PO DAILY 11/08/19 10/12/22 History tablet (Vitamin C) aspirin 81 mg tablet,delayed 81 mg PO DAILY 11/08/19 10/12/22 History release (Suma Low Dose Aspirin) atenolol 50 mg tablet 25 mg PO HS 11/08/19 10/12/22 History atorvastatin 40 mg tablet 40 mg PO QAM 11/08/19 10/12/22 History fish, borage, flaxseed oils-omega 1 cap PO DAILY 11/08/19 10/12/22 History 3,6,9 comb no.1 1,200 mg capsule ([place] 3-6-9) zqpiwbavuat-goo-sklogxljt-vitC 1 cap PO DAILY 11/08/19 10/12/22 History capsule insulin aspart U-100 100 unit/mL 30 unit subcut BIDM 11/08/19 10/12/22 History (3 mL) subcutaneous pen (Novolog FlexPen U-100 Insulin aspart) insulin glargine 100 unit/mL 50 unit subcut QAM 11/08/19 10/12/22 History subcutaneous solution (Lantus U-100 Insulin) onlxowth-lr-qmjed 300 mcg-K 60 1 tab PO DAILY 11/08/19 10/12/22 History mcg-lycop 600 mcg-lutein 300 mcg tablet (Centrum Silver Men) sildenafil 25 mg tablet (Viagra) 25 mg PO DAILY PRN Erectile 11/08/19 10/12/22 History Dysfunction sitagliptin phosphate 50 1 tab PO BID 11/08/19 10/12/22 History mg-metformin 1,000 mg tablet (Janumet) telmisartan 20 mg tablet 10 mg PO QAM 11/08/19 10/12/22 History zinc 50 mg tablet 50 mg PO DAILY 11/08/19 10/12/22 History Past Med/Surg History Medical History Diabetes mellitus, type 2 IDDM Hx of brachytherapy Hyperlipidemia Hypertension Prostate CA Surgical History History of cardiac cath no stent. History of cholecystectomy History of herniorrhaphy inguinal (Left) History of right cataract surgery History of tonsillectomy S/P arthroscopy of shoulder left S/P left knee arthroscopy S/P right knee arthroscopy S/P right rotator cuff repair Family History Other No family history of adverse response to anesthesia Social History Smoking Status: Former smoker Tobacco Type: Cigarettes Second Hand Exposure: No; Do You Dip or Chew Tobacco: No; Hx Alcohol Use: No Hx Substance Use: No Preferred Language: Luxembourgish Communication Ability: Effective Specimen Transporter Required: No Beliefs That Will Affect Care: None Current Living Situation: Alone Current Living Situation Comment: with son Feels Safe at Home: Yes Assistive Devices: Glasses Review of Systems Review of Systems: As per HPI, all other systems reviewed and negative Physical Exam Physical Exam: GENERAL: Comfortable, anxious, no respiratory distress SKIN: Normal color, warm HEENT: [place] palpebral conjunctivae, no ptosis, dry buccal mucosa NECK : Supple, no tenderness CHEST : CTA, no tenderness HEART : RRR, no obvious murmurs ABDOMEN: Some distention, minimal hypogastric tenderness EXTREMITIES : No LE swelling/tenderness, no other conspicuous deformities noted NEUROLOGIC : Coherent, no facial asymmetry, no other gross focality Results & Data Results & Data Vital Signs (Past 12 Hours) Vital Signs Temp Pulse Pulse Resp BP BP Pulse Ox 10/12/22 21:38 100 H 154/88 H 10/12/22 21:10 105 H 20 97 10/12/22 21:07 176/89 H 10/12/22 21:07 103 H 24 96 10/12/22 21:06 97 10/12/22 20:01 99 H 22 10/12/22 20:01 155/102 H 10/12/22 20:00 102 H 18 10/12/22 19:50 99 H 21 10/12/22 19:40 105 H 24 10/12/22 19:30 105 H 32 H 97 10/12/22 19:30 162/96 H 10/12/22 19:20 105 H 20 97 10/12/22 19:10 104 H 18 95 10/12/22 19:00 103 H 23 96 10/12/22 19:00 178/99 H 10/12/22 18:50 104 H 21 97 10/12/22 18:40 105 H 19 97 10/12/22 18:31 105 H 17 97 10/12/22 18:33 106 H 10/12/22 18:15 111 H 21 97 10/12/22 18:15 111 H 24 198/106 H 97 10/12/22 18:07 37 C 70 16 233/137 H 96 O2 Del Method 10/12/22 21:38 10/12/22 21:10 10/12/22 21:07 10/12/22 21:07 10/12/22 21:06 10/12/22 20:01 10/12/22 20:01 10/12/22 20:00 10/12/22 19:50 10/12/22 19:40 10/12/22 19:30 10/12/22 19:30 10/12/22 19:20 10/12/22 19:10 10/12/22 19:00 10/12/22 19:00 10/12/22 18:50 10/12/22 18:40 10/12/22 18:31 10/12/22 18:33 10/12/22 18:15 Room Air 10/12/22 18:15 Room Air 10/12/22 18:07 Laboratory Results Laboratory Results WBC 11.49 K/ul (4.8-10.8) H 10/12/22 18:20 RBC 5.06 M/uL (4.70-6.10) 10/12/22 18:20 Hgb 15.6 g/dl (14.0-18.0) 10/12/22 18:20 Hct 42.9 % (42.0-52.0) 10/12/22 18:20 MCV 84.8 fL (80.0-100.0) 10/12/22 18:20 MCH 30.8 pg (25.0-34.0) 10/12/22 18:20 MCHC 36.4 g/dL (32.0-36.0) H 10/12/22 18:20 RDW Std Deviation 36.6 fL (36.4-46.3) 10/12/22 18:20 RDW Coeff of Myron 12.0 % (11.5-14.5) 10/12/22 18:20 Plt Count 332 K/uL (130-400) 10/12/22 18:20 MPV 10.6 fL (9.4-12.4) 10/12/22 18:20 Immature Gran % (Auto) 0.4 % 10/12/22 18:20 Neut % (Auto) 67.1 % 10/12/22 18:20 Lymph % (Auto) 22.4 % 10/12/22 18:20 [place] % (Auto) 7.7 % 10/12/22 18:20 Eos % (Auto) 1.7 % 10/12/22 18:20 Baso % (Auto) 0.7 % 10/12/22 18:20 Neut # (Auto) 7.72 K/uL (1.40-6.50) H 10/12/22 18:20 Lymph # (Auto) 2.57 K/uL (1.2-3.4) 10/12/22 18:20 [place] # (Auto) 0.88 K/uL (0.11-0.59) H 10/12/22 18:20 Eos # (Auto) 0.19 K/uL (0-0.50) 10/12/22 18:20 Baso # (Auto) 0.08 K/uL (0-0.2) 10/12/22 18:20 Immature Gran # (Auto) 0.05 K/uL (0.01-0.20) 10/12/22 18:20 VBG pH 7.44 (7.36-7.41) H 10/12/22 19:37 VBG pCO2 31 mmHg (38-50) L 10/12/22 19:37 VBG pO2 38 mmHg 10/12/22 19:37 VBG HCO3 21 mmol/L 10/12/22 19:37 VBG O2 Saturation 60.7 % 10/12/22 19:37 VBG Base Excess -2.1 mEq/L 10/12/22 19:37 Sodium 127 mmol/L (136-145) L 10/12/22 18:20 Potassium 4.1 mmol/L (3.5-5.1) 10/12/22 18:20 Chloride 92 mmol/L (98-107) L 10/12/22 18:20 Carbon Dioxide 16 mmol/L (21-32) L 10/12/22 18:20 Anion Gap 19 (3-11) H 10/12/22 18:20 BUN 20 mg/dl (6-23) 10/12/22 18:20 Creatinine 1.48 mg/dl (0.6-1.4) H 10/12/22 18:20 Est Cr Clr Drug Dosing 46.2 ml/min 10/12/22 18:20 Est GFR ( Amer) 55.6 ml/min 10/12/22 18:20 Est GFR (Non-Af Amer) 47.9 ml/min 10/12/22 18:20 BUN/Creatinine Ratio 13.5 (10-20) 10/12/22 18:20 Glucose 828 mg/dl (70-99(Fasting)) H* 10/12/22 18:20 POC Glucose 479 mg/dl (70-99) H* 10/12/22 21:10 Estimat Average Glucose 372 mg/dl 10/12/22 18:20 Hemoglobin A1c 14.6 % (4.5-5.6) H 10/12/22 18:20 Osmolality 331 mOsm/kg (280-300) H 10/12/22 18:20 Lactate 5.5 mmol/L (0.4-2.0) H* 10/12/22 19:37 Calcium 9.7 mg/dl (8.6-10.3) 10/12/22 18:20 Magnesium 2.0 mg/dl (1.7-2.4) 10/12/22 18:20 Total Bilirubin 0.6 mg/dl (0.2-1.0) 10/12/22 18:20 AST 12 U/L (13-39) L 10/12/22 18:20 ALT 13 U/L (7-52) 10/12/22 18:20 Alkaline Phosphatase 136 U/L (34-104) H 10/12/22 18:20 Total Protein 8.0 gm/dl (6.0-8.3) 10/12/22 18:20 Albumin 4.8 gm/dl (3.4-5.0) 10/12/22 18:20 Globulin 3.2 gm/dl (2.5-4.0) 10/12/22 18:20 Albumin/Globulin Ratio 1.5 (0.9-2) 10/12/22 18:20 Lipase 32 U/L (11-82) 10/12/22 18:20 Procalcitonin 0.07 ng/ml (0-0.5) 10/12/22 18:20 TSH 0.506 uIu/ml (0.300-4.500) 10/12/22 18:20 Urine Color Yellow 10/12/22 20:00 Urine Appearance Clear (Clear) 10/12/22 20:00 Urine pH 5.5 (4.5-7.5) 10/12/22 20:00 Ur Specific [place] 1.033 (1.000-1.030) H 10/12/22 20:00 Urine Protein Trace (Negative) H 10/12/22 20:00 Urine Glucose (UA) 3+ (Negative) H 10/12/22 20:00 Urine Ketones Trace (Negative) H 10/12/22 20:00 Urine Blood 3+ (Negative) H 10/12/22 20:00 Urine Nitrite Negative (Negative) 10/12/22 20:00 Urine Bilirubin Negative (Negative) 10/12/22 20:00 Urine Urobilinogen Negative (Negative) 10/12/22 20:00 Ur Leukocyte Esterase 1+ (Negative) H 10/12/22 20:00 Urine WBC (Auto) >30 /hpf (0-5) H 10/12/22 20:00 Urine RBC (Auto) >30 /hpf (0-4) H 10/12/22 20:00 U Hyaline Cast (Auto) 1-5 /lpf (0-5) 10/12/22 20:00 U Epithel Cells (Auto) 0-5 /lpf (0-5) 10/12/22 20:00 Urine Bacteria (Auto) Negative (Negative) 10/12/22 20:00 Urine Yeast Not Reportable 10/12/22 20:00 Urine Osmolality 568 mOsm/kg (500-800) 10/12/22 20:00 Ur Random Sodium 29 mmol/L 10/12/22 20:00 SARS-CoV-2, RNA, NAAT NEGATIVE (NEGATIVE) 10/12/22 20:00 Impressions Abdomen/Pelvis CT 10/12/22 19:42 Exam(s): CT ABDOMEN + PELVIS Without Contrast EXAM: CT Abdomen and Pelvis Without Intravenous Contrast CLINICAL HISTORY: Reason for exam: urinary retention, eval for obs uropathy. TECHNIQUE: Axial computed tomography images of the abdomen and pelvis without intravenous contrast. CTDI is 20.05 mGy and DLP is 948.03 mGy-cm. Automated exposure control was utilized for the study. A dose lowering technique was utilized adhering to the principles of ALARA. COMPARISON: No relevant prior studies available. FINDINGS: Lung bases: Unremarkable. No mass. No consolidation. ABDOMEN: Liver: Unremarkable. Gallbladder and bile ducts: Cholecystectomy. No ductal dilation. Pancreas: Unremarkable. No ductal dilation. Spleen: Unremarkable. No splenomegaly. Adrenals: Unremarkable. No mass. Kidneys and ureters: Unremarkable. No obstructing stones. No hydronephrosis. Stomach and bowel: Diverticulosis, without acute diverticulitis. No small bowel obstruction. No free intraperitoneal air. PELVIS: Appendix: Normal appendix. Bladder: Thornton catheter terminates in a decompressed urinary bladder with mild wall thickening. Correlate with urinalysis to exclude UTI. No stones. Reproductive: Prostate fiduciary markers. ABDOMEN and PELVIS: Intraperitoneal space: Unremarkable. No free air. No significant fluid collection. Bones/joints: Degenerative changes of the spine. No acute fracture. No dislocation. Soft tissues: Unremarkable. Vasculature: Atherosclerotic changes of the aorta. No abdominal aortic aneurysm. Lymph nodes: Unremarkable. No enlarged lymph nodes. IMPRESSION: 1. Normal appendix. 2. Thornton catheter terminates in a decompressed urinary bladder with mild wall thickening. Correlate with urinalysis to exclude UTI. 3. Cholecystectomy. 4. Diverticulosis, without acute diverticulitis. No small bowel obstruction. No free intraperitoneal air. Electronically signed by: Nelson Sung MD 10/12/22 21:54 PM Diagnostic Findings Chest x-ray as per my interpretation atelectasis, elevated right hemidiaphragm, prominent aortic knob EKG as per my interpretation :Rate 100, NSR, LAD LAFB, no ischemia
[2022-10-12 23:15] LABS: Base Excess VBG -2.6 mEq/L; HCO3 VBG 23 mmol/L; Oxygen Saturation VBG < 60.0 %; PCO2 VBG 43 mmHg (38-50); PO2 VBG 32 mmHg; pH VBG 7.34 (7.36-7.41)
[2022-10-12] MEDS ORDERED: DEXTROSE 50% 50 ML SYRINGE IV PRN (23:32)
[2022-10-12] MEDS ORDERED: GLUCOSE 40% GEL 15 GM TUBE PO PRN (23:32)
[2022-10-12] MEDS ORDERED: GLUCAGON FOR INJ 1 MG VIAL SQ PRN (23:32)
[2022-10-12] MEDS ORDERED: GLUCOSE 10 TAB/TUBE PO PRN (23:32)
[2022-10-12] MEDS ORDERED: HHS GOAL RANGE 250-350 mg/dl ONE (23:32)
[2022-10-12] MEDS ORDERED: STAT INSULIN DRIP STA (23:32)
[2022-10-12] MEDS ORDERED: CARBOHYDRATES FOR HYPOGLYCEMIA PO PRN (23:32)
[2022-10-12] MEDS ORDERED: INSULIN REGULAR 250 UNITS in SODIUM CHLORIDE 0.9% 247.5 ML IV SCH (23:45)
[2022-10-12] MEDS ORDERED: NovoLIN-R BOLUS FROM BAG IV ONE (23:45)
[2022-10-12 23:46] LABS: BUN Creatinine Ratio 15.8 (10-20); Calcium 8.7 mg/dl (8.6-10.3); Est GFR (African American) 76.2 ml/min; Est GFR (Non-African American) 65.7 ml/min; Potassium 4.5 mmol/L (3.5-5.1)
[2022-10-13] MEDS ORDERED: SODIUM CHLORIDE 0.9% 1000ML 1,000 ML IV ONE (00:03)
[2022-10-13] MEDS ORDERED: ACETAMINOPHEN 325 MG TAB PO PRN (00:08)
[2022-10-13] MEDS ORDERED: PHENAZOPYRIDINE HCL 100 MG TAB PO PRN (00:08)
[2022-10-13] MEDS ORDERED: PHARMACY GLYCEMIC MGMT CONSULT PRN ×2 (01:41→08:05)
[2022-10-13 03:59] LABS: Basophils # (auto) 0.09 K/uL (0-0.2); Basophils % (auto) 0.6 %; Eosinophils # (auto) 0.15 K/uL (0-0.50); Eosinophils % (auto) 1.1 %; Hematocrit (blood only) 37.6 % (42.0-52.0); Hemoglobin 13.7 g/dl (14.0-18.0); Immature Granulocytes # (auto) 0.05 K/uL (0.01-0.20); Immature Granulocytes % (auto) 0.4 %; Lymphocytes # (auto) 2.42 K/uL (1.2-3.4); Lymphocytes % (auto) 17.4 %; Mean Corpuscular Hemoglobin 30.9 pg (25.0-34.0); Mean Corpuscular Hgb Conc 36.4 g/dL (32.0-36.0); Mean Corpuscular Volume 84.7 fL (80.0-100.0); Mean Platelet Volume 10.2 fL (9.4-12.4); Monocytes # (auto) 1.32 K/uL (0.11-0.59); Monocytes % (auto) 9.5 %; Neutrophils # (auto) 9.88 K/uL (1.40-6.50); Platelet Count 265 K/uL (130-400); RDW Coefficient of Variation 12.1 % (11.5-14.5); RDW Standard Deviation 36.8 fL (36.4-46.3); Red Blood Count 4.44 M/uL (4.70-6.10); White Blood Count 13.91 K/ul (4.8-10.8)
[2022-10-13 04:18] LABS: BUN Creatinine Ratio 14.1 (10-20); Calcium 8.7 mg/dl (8.6-10.3); Creatinine Clr Calc Pharmacy 69.1 ml/min; Est GFR (African American) 90.3 ml/min; Est GFR (Non-African American) 77.9 ml/min; Potassium 3.6 mmol/L (3.5-5.1)
[2022-10-13] MEDS ORDERED: NSS + 20MEQ KCL 20 MEQ/1,000 ML BAG IV ONE (04:45)
[2022-10-13] MEDS ORDERED: POTASSIUM CHLORIDE CRTAB 20 MEQ TABCR PO STA (04:46)
[2022-10-13] MEDS ORDERED: LANTUS PER UNIT CHARGE SC ONE ×2 (05:00→21:00)
[2022-10-13] MEDS: CEFEPIME 2,000 MG in SYRINGE 0 ML IV SCH ×3 (05:45→22:08)
[2022-10-13] MEDS ORDERED: HEPARIN SOD 5,000 UNIT/0.5 ML VIAL SQ SCH (06:00)
[2022-10-13] MEDS ORDERED: INSULIN ASPART PER UNIT CHARGE SC SCH (07:30)
--- NOTE | 2022-10-13 08:00 | Hospitalist Progress Note ---
Date of Service October 13, 2022 Assessment & Plan (1) Severe sepsis: (2) Hyperglycemic crisis in diabetes mellitus: (3) Acute urinary retention: (4) History of prostate cancer: (5) Acute dehydration: (6) Complicated UTI (urinary tract infection): Plan Pt is a 66yo gentleman with PMHx of prostate cancer s/p radiation, uncontrolled diabetes, CAD, HTN, HLD, FILIBERTO admitted with sepsis in the setting of a complicated UTI, urinary retention and hyperglycemia crisis. Severe sepsis/Complicated UTI/Urinary Retention UA suggestive of infection, urine cx pending. WBC elevated Blood Cx x2 pending Continue Cefepime, narrow based on culture results Continue fluids Appreciate urology recs- recommending Thornton catheter for 1 week, bowel regimen and tamsulosin Hyperglycemia crisis/Uncontrolled DM Current hemoglobin A1c of 14.6 On insulin drip with IV fluids- appreciate pharmacy recs Diabetic education HTN Continue home losartan and atenolol CAD/HLD Continue home statin and aspirin Hx of prostate cancer Urology recommending PSA trends outpt and re-establishing/close follow up with Urology after discharge. Diet: HH DVT prophylaxis: Lovenox SQ Full code Admission and Anticipated Discharge Date Admission Date: October 12, 2022 Subjective Pt seen this AM, states he is trying to get some sleep as he has not slept well for the past few days. Denies any acute concerns. Review of Systems Review of Systems: All systems reviewed & are unremarkable except as noted in Subjective Physical Exam Physical Exam: General: drowsy, laying in bed Psych: Appropriate mood and affect Neuro: No gross deficits HEENT: NC/AT CV: RRR Resp: no increased effort of breathing. Abdomen:Soft, abdomen diffusely tender, nondistended Extremities: Trace edema in lower extremities bilaterally. Results & Data Results & Data Vital Signs (Past 12 Hours) Vital Signs Temp Pulse Pulse Resp BP BP Pulse Ox 10/13/22 00:08 10/13/22 00:08 36.4 C L 93 H 22 158/91 H 95 10/12/22 22:57 80 170/136 H 10/12/22 22:50 81 10/12/22 21:38 100 H 154/88 H 10/12/22 21:10 105 H 20 97 10/12/22 21:07 176/89 H 10/12/22 21:07 103 H 24 96 10/12/22 21:06 97 10/12/22 20:01 99 H 22 10/12/22 20:01 155/102 H Pulse Ox O2 Del Method O2 Del Method 10/13/22 00:08 93 Room Air 10/13/22 00:08 Room Air 10/12/22 22:57 10/12/22 22:50 10/12/22 21:38 10/12/22 21:10 10/12/22 21:07 10/12/22 21:07 10/12/22 21:06 10/12/22 20:01 10/12/22 20:01
[2022-10-13] MEDS: ATORVASTATIN 40 MG TAB PO SCH (08:07)
[2022-10-13] MEDS: ASPIRIN 81 MG ECTAB PO SCH (08:07)
[2022-10-13] MEDS: GLUCOSAMINE SULFATE 500 MG CAP PO SCH (08:07)
--- NOTE | 2022-10-13 08:13 | XRay Report ---
XR chest 1V portable CLINICAL HISTORY: hyponatremia TECHNIQUE: Single frontal radiograph of the chest was obtained. Comparison: Comparison is made to chest radiograph 01/16/1950 FINDINGS: No lines and tubes are seen. Calcified aortic knob is seen. The lungs are clear. No evidence of pleur al effusion or pneumothorax. IMPRESSION: No acute chest disease. ACT 112: Negative or not required by law. Electronically signed by: Carlos Russell M.D. 10/13/2022 8:12 AM
[2022-10-13] MEDS: INSULIN ASPART PER UNIT CHARGE SC SCH ×4 (08:17→22:09)
--- NOTE | 2022-10-13 09:34 | Urology Consultation ---
Date of Consultation October 13, 2022 Assessment & Plan (1) Acute urinary retention: We reviewed his urinary retention. Possible causes include outlet obstruction from his prostate or stricture. Atonic bladder is also possible, especially given his diabetes. UTI is a possibility, and culture is currently pending. For now, retention is managed with Thornton catheter in place. Would recommend keeping the Thornton for approximately 1 week to allow bladder rest. We can arrange outpatient follow-up in the urology office for voiding trial and cystoscopy. In the meantime, would recommend starting tamsulosin. (2) History of prostate cancer: Prostate cancer was treated with radiation therapy. It does not seem that he has been monitoring PSAs. This can be done as an outpatient, but he should reestablish care to follow-up on PSAs, especially in the setting of recent 30 pound weight loss. Plan For now, would recommend the following: Maintain Thornton catheter for 1 week -urology will coordinate outpatient removal if he is discharged Start tamsulosin Bowel regimen Follow-up urine culture and treat if positive Urology will sign off for now, please call with any questions or concerns. History of Present Illness Reason for Consultation: Urinary retention Attending Physician: Jade Hoffman MD History of Present Illness This is a 66-year-old male who presented to the emergency department on 10/12/2022 with abdominal pain. He has a history of prostate cancer (treated with brachytherapy and external beam therapy, ~ 2014) as well as difficulty with urinating. He reports that he has to bear down sometimes to empty his bladder. He denies ever being on tamsulosin or finasteride. He denies any surgical intervention on his prostate. He denies any recent issues with constipation. Of note, he reports unintentional 30 pound weight loss over the past couple months. It does not appear that he has had ongoing PSA monitoring after treatment for prostate cancer. Work-up in the emergency department was notable for mild leukocytosis (WBC 11.49). Glucose was elevated to 527 and hemoglobin A1c was 14.6. His lactate was elevated as well to 2.4. Urinalysis was notable for 3+ blood, 1+ leukocyte esterase, negative nitrites, negative bacteria and negative yeast. A CT scan was performed. I independently reviewed these images from 10/12/2022. Both kidneys are in normal position with some perinephric stranding bilaterally. There is no significant hydronephrosis on either side. His bladder is decompressed with a Thornton catheter in place. The bladder wall appears somewhat thickened. His prostate is small with brachytherapy seeds present. Allergies Allergy/AdvReac Type Severity Reaction Status Date / Time hydrocodone AdvReac Unknown itching Verified 10/12/22 18:53 Home Medications Medication Instructions Recorded Confirmed Type Lactobacillus acidophilus 1.5 mg 1,000 mmu cells PO DAILY 11/08/19 10/12/22 History (250 million cell) capsule (Probiotic Acidophilus) ascorbic acid (vitamin C) 500 mg 500 mg PO DAILY 11/08/19 10/12/22 History tablet (Vitamin C) aspirin 81 mg tablet,delayed 81 mg PO DAILY 11/08/19 10/12/22 History release (Suma Low Dose Aspirin) atenolol 50 mg tablet 25 mg PO HS 11/08/19 10/12/22 History atorvastatin 40 mg tablet 40 mg PO QAM 11/08/19 10/12/22 History fish, borage, flaxseed oils-omega 1 cap PO DAILY 11/08/19 10/12/22 History 3,6,9 comb no.1 1,200 mg capsule ([place] 3-6-9) [id number]-vitC 1 cap PO DAILY 11/08/19 10/12/22 History capsule insulin aspart U-100 100 unit/mL 30 unit subcut BIDM 11/08/19 10/12/22 History (3 mL) subcutaneous pen (Novolog FlexPen U-100 Insulin aspart) insulin glargine 100 unit/mL 50 unit subcut QAM 11/08/19 10/12/22 History subcutaneous solution (Lantus U-100 Insulin) [id number]-[id number] 300 mcg-K 60 1 tab PO DAILY 11/08/19 10/12/22 History mcg-lycop 600 mcg-lutein 300 mcg tablet (Centrum Silver Men) sildenafil 25 mg tablet (Viagra) 25 mg PO DAILY PRN Erectile 11/08/19 10/12/22 History Dysfunction sitagliptin phosphate 50 1 tab PO BID 11/08/19 10/12/22 History mg-metformin 1,000 mg tablet (Janumet) telmisartan 20 mg tablet 10 mg PO QAM 11/08/19 10/12/22 History zinc 50 mg tablet 50 mg PO DAILY 11/08/19 10/12/22 History Patient History Medical History Diabetes mellitus, type 2 IDDM Hx of brachytherapy Hyperlipidemia Hypertension Prostate CA Surgical History History of cardiac cath no stent. History of cholecystectomy History of herniorrhaphy inguinal (Left) History of right cataract surgery History of tonsillectomy S/P arthroscopy of shoulder left S/P left knee arthroscopy S/P right knee arthroscopy S/P right rotator cuff repair Family History Other No family history of adverse response to anesthesia Social History Smoking Status: Former smoker Tobacco Type: Cigarettes Second Hand Exposure: No; Do You Dip or Chew Tobacco: No; Hx Alcohol Use: No Hx Substance Use: No Preferred Language: Frisian Communication Ability: Effective Welder Shielded Metal Arc Required: No Beliefs That Will Affect Care: None Current Living Situation: Alone Current Living Situation Comment: with son Feels Safe at Home: Yes Assistive Devices: Glasses Review of Systems Review of Systems: 12 point review of systems negative except for otherwise indicated. Physical Exam Constitutional: well developed and well nourished; no acute distress Eyes: + anicteric sclerae; pupils not irregular Respiratory: normal respiratory effort; no respiratory distress, does not use accessory muscles and no cough Cardiovascular: well perfused Gastrointestinal (Abdomen): Inspection/Auscultation: abdomen normal to inspection; abdomen not distended Musculoskeletal: Extremities: extremities normal to inspection Skin: normal turgor; no rashes and no lesions Neurologic: moves all extremities and awake Psychiatric: Orientation: alert and oriented x 3 Genitourinary: Thornton catheter in place draining clear red urine. Results & Data Vital Signs (Past 12 Hours) Vital Signs Temp Pulse Pulse Resp BP BP Pulse Ox 10/13/22 00:08 10/13/22 00:08 36.4 C L 93 H 22 158/91 H 95 10/12/22 22:57 80 170/136 H 10/12/22 22:50 81 10/12/22 21:38 100 H 154/88 H Pulse Ox O2 Del Method O2 Del Method 10/13/22 00:08 93 Room Air 10/13/22 00:08 Room Air 10/12/22 22:57 10/12/22 22:50 10/12/22 21:38 PG Care Time/CCT Total # of Minutes Spent Total Time Spent with Patient: Total time spent is greater than 50% in coordination of care (as documented) at patient's floor/unit and/or counseling patient: Coding Level of Care Code 37700 INT INP/OBS CARE 2/55MIN Diagnoses Acute urinary retention R33.8 History of prostate cancer Z85.46
[2022-10-13] MEDS: ENOXAPARIN INJ 40 MG/0.4 ML SYR SQ SCH (10:17)
[2022-10-13] MEDS: LOSARTAN POTASSIUM 25 MG TAB PO SCH (10:18)
--- NOTE | 2022-10-13 11:52 | Electrocardiogram Report ---
Test Reason : Blood Pressure : / mmHG Vent. Rate : 100 BPM Atrial Rate : 100 BPM P-R Int : 150 ms QRS Dur : 084 ms QT Int : 384 ms P-R-T Axes : 036 -38 008 degrees QTc Int : 495 ms Normal sinus rhythm Left axis deviation Prolonged QT Abnormal ECG When compared with ECG of 16-JAN-2015 11:41, Vent. rate has increased BY 34 BPM QT has lengthened Confirmed by Alvaro Wheeler ([id number]) on 10/13/2022 11:52:23 AM Referred By: REFERRED SELF Confirmed By:Alvaro Wheeler
--- NOTE | 2022-10-13 11:53 | Pharmacy Report ---
Pharmacy Glycemic Short Note 2 - Date of Service October 13, 2022 - Glycemic Short BSG Results (Last 24 hours): 10/12/22 10/12/22 10/12/22 18:20 21:10 23:00 Glucose 828 H* 527 H* POC Glucose 479 H* 10/12/22 10/12/22 10/13/22 23:02 23:52 00:50 Glucose POC Glucose 490 H* 419 H* 354 H* 10/13/22 10/13/22 10/13/22 01:50 02:43 03:36 Glucose 168 H POC Glucose 282 H 238 H 10/13/22 10/13/22 10/13/22 03:39 03:58 04:11 Glucose POC Glucose 157 H 155 H 164 H 10/13/22 10/13/22 10/13/22 04:51 08:02 11:22 Glucose POC Glucose 218 H 304 H* 275 H OUTPATIENT ANTIDIABETIC REGIMEN: * Not taking anything x 3 months 2nd cost * Prior reported regimen * Janumet * Lantus 50 units BID * Novolog 30 units BID * HbA1c 14.6% on 10/12/22 ASSESSMENT: * 66 yo M with T2DM currently not taking insulin 2nd cost admitted with hyperglycemia and possibly mild DKA. Despite high initial BSG of >800 mg/dL, not HHS as effective osmolality was only 300 mOsm (did not exceed 320 mOsm c/w w HHS). CO2 was however slightly low at 16 and anion gap was slightly elevated at 19. These have both normalized. T2DM diet now ordered * Insulin drip started initially, but now transitioned off and Lantus started this AM. * Unclear what insulin needs will be, but given high A1c, severe hyperglycemia, and higher reported prior outpatient doses, OK to structure regimen close to a weight-based severe stress estimate. Will only be slightly more loose on the carb ratio to begin. Will also scale Lantus in PM if BSG's decrease. Will add in two overnight checks tonight PLAN FOR INPATIENT GLYCEMIC CONTROL: * Hold outpatient oral diabetes medications * Basal insulin * Lantus 20 units SQ x1 with 0-20 units tonight based on BSG * Bolus insulin * NovoLog ACHS (or Q6hrs if NPO). Two additional overnight checks tonight. * Goal Range: Low 110 mg/dL - High 140 mg/dL * Correction Factor: 20 mg/dL/unit * Nutritional / Prandial insulin per carb ratio of 1 unit per 8 grams CHO consumed
[2022-10-13] MEDS ORDERED: POLYETHYLENE (MIRALAX) 17 GM PACK PO PRN (13:52)
[2022-10-13] MEDS: TAMSULOSIN HCL 0.4 MG CAP PO SCH (16:00)
[2022-10-13] MEDS: DOCUSATE SODIUM 100 MG CAP PO SCH (19:40)
[2022-10-13] MEDS: ATENOLOL 25 MG TABLET PO SCH (19:40)
[2022-10-14] MEDS: INSULIN ASPART PER UNIT CHARGE SC SCH ×6 (01:13→20:46)
[2022-10-14] MEDS: CEFEPIME 2,000 MG in SYRINGE 0 ML IV SCH ×3 (06:13→20:45)
[2022-10-14 08:36] LABS: Basophils # (auto) 0.08 K/uL (0-0.2); Basophils % (auto) 0.8 %; Eosinophils % (auto) 2.9 %; Hematocrit (blood only) 40.9 % (42.0-52.0); Hemoglobin 14.6 g/dl (14.0-18.0); Immature Granulocytes # (auto) 0.03 K/uL (0.01-0.20); Immature Granulocytes % (auto) 0.3 %; Lymphocytes # (auto) 2.15 K/uL (1.2-3.4); Lymphocytes % (auto) 20.9 %; Mean Corpuscular Hemoglobin 30.7 pg (25.0-34.0); Mean Corpuscular Hgb Conc 35.7 g/dL (32.0-36.0); Mean Corpuscular Volume 85.9 fL (80.0-100.0); Mean Platelet Volume 10.4 fL (9.4-12.4); Monocytes # (auto) 0.79 K/uL (0.11-0.59); Monocytes % (auto) 7.7 %; Neutrophils # (auto) 6.93 K/uL (1.40-6.50); Neutrophils % (auto) 67.4 %; Platelet Count 251 K/uL (130-400); RDW Coefficient of Variation 12.3 % (11.5-14.5); Red Blood Count 4.76 M/uL (4.70-6.10); White Blood Count 10.28 K/ul (4.8-10.8)
[2022-10-14] MEDS: ASPIRIN 81 MG ECTAB PO SCH (08:37)
[2022-10-14] MEDS: DOCUSATE SODIUM 100 MG CAP PO SCH ×2 (08:37→20:44)
[2022-10-14] MEDS: ATORVASTATIN 40 MG TAB PO SCH (08:37)
[2022-10-14] MEDS: ENOXAPARIN INJ 40 MG/0.4 ML SYR SQ SCH (08:38)
[2022-10-14] MEDS: LOSARTAN POTASSIUM 25 MG TAB PO SCH (08:40)
[2022-10-14] MEDS: GLUCOSAMINE SULFATE 500 MG CAP PO SCH (08:40)
[2022-10-14] MEDS: TAMSULOSIN HCL 0.4 MG CAP PO SCH (08:41)
[2022-10-14 08:59] LABS: Calcium 8.8 mg/dl (8.6-10.3); Creatinine Clr Calc Pharmacy 90.1 ml/min; Est GFR (African American) 105.3 ml/min; Est GFR (Non-African American) 90.9 ml/min; Potassium 3.5 mmol/L (3.5-5.1)
[2022-10-14] MEDS ORDERED: LANTUS PER UNIT CHARGE SC SCH ×2 (09:00→21:00)
--- NOTE | 2022-10-14 12:48 | Pharmacy Report ---
Pharmacy Glycemic Short Note 2 - Date of Service October 14, 2022 - Glycemic Short BSG Results (Last 24 hours): 10/13/22 10/13/22 10/14/22 16:40 20:32 00:59 Glucose POC Glucose 200 H 211 H 147 H 10/14/22 10/14/22 10/14/22 04:48 07:11 07:57 Glucose 151 H POC Glucose 139 H 161 H 10/14/22 11:47 Glucose POC Glucose 214 H OUTPATIENT ANTIDIABETIC REGIMEN: * Not taking anything x 3 months 2nd cost * Prior reported regimen * Janumet * Lantus 50 units BID * Novolog 30 units BID * HbA1c 14.6% on 10/12/22 ASSESSMENT: 10/14/22: * BSGs elevated yesterday, ranging 147-304 mg/dL * Received 72 units of insulin plus additional through IV infusion * Fasting BSG of 161 mg/dL this morning * Will tighten Novolog carb ratio today and allow for increased basal today 10/13/22: * 66 yo M with T2DM currently not taking insulin 2nd cost admitted with hyperglycemia and possibly mild DKA. Despite high initial BSG of >800 mg/dL, not HHS as effective osmolality was only 300 mOsm (did not exceed 320 mOsm c/w w HHS). CO2 was however slightly low at 16 and anion gap was slightly elevated at 19. These have both normalized. T2DM diet now ordered * Insulin drip started initially, but now transitioned off and Lantus started this AM. * Unclear what insulin needs will be, but given high A1c, severe hyperglycemia, and higher reported prior outpatient doses, OK to structure regimen close to a weight-based severe stress estimate. Will only be slightly more loose on the carb ratio to begin. Will also scale Lantus in PM if BSG's decrease. Will add in two overnight checks tonight PLAN FOR INPATIENT GLYCEMIC CONTROL: * Hold outpatient oral diabetes medications * Basal insulin * Lantus 20-30 units SC BID * Bolus insulin * NovoLog ACHS (or Q6hrs if NPO). * Goal Range: Low 110 mg/dL - High 140 mg/dL * Correction Factor: 20 mg/dL/unit * Nutritional / Prandial insulin per carb ratio of 1 unit per 7 grams CHO consumed
--- NOTE | 2022-10-14 15:02 | Hospitalist Progress Note ---
Date of Service October 14, 2022 Assessment & Plan (1) Severe sepsis: Plan: resuscitated, cont abx (2) DKA (diabetic ketoacidosis): Plan: off insulin drip and now euglycemic on basal bolus insulin. Pt was noncompliant with insulin for 2 months precipitating this event. He will go back on this at discharge and will need supplies. (3) Complicated UTI (urinary tract infection): Plan: cont abx with de-escalation based on cultures. (4) Acute urinary retention: Plan: likely related to UTI vs BPH. Sherman in place. Cont tamsulosin. Per Urology, TOV should be done as outpatient. (5) History of prostate cancer: Plan: f/u with urology (6) Hypertension: Plan: chronic, stable. Cont current medical therapy DVT prophy: Lovenox Full Code Dispo-to home in am. PT/OT ordered given weakness and assistance with ADLs this am. Maria E River DO [facility] Hospitalist Admission and Anticipated Discharge Date Admission Date: October 12, 2022 Subjective 66 yo M admitted with DKA 2/2 sepsis 2/[address] for urinary retention we discussed the recommendation to keep this in for 1 week and he reports this angers him and he was not aware of it He is open to restarting Lantus/Novolog that he was on previously "L guess Im going to have to" He reports "my son is a chiropractor and doesn't believe in all you people,, ok?" He denies any symptoms, appears generally weak and required assistance with a bath this am PT/OT ordered but he states he can move around at his baseline Noted difficulty sitting up independently Tolerating PO Pt is requesting to stay one more day Review of Systems Review of Systems: All systems were reviewed and negative except as indicated on subjective above. Physical Exam Physical Exam: CONSTITUTIONAL: WNWD, vitals as above, generally well-appearing, NAD EYES: normal conjunctivae, no scleral icterus, ENT: external ear and nose normal, MMM NECK: trachea midline RESPIRATORY: clear to auscultation bilaterally, no crackles, rales or wheezes, normal respiratory effort CARDIOVASCULAR: regular rate and rhythm, S1 and 2 heard without murmurs, gallops or rubs, no JVD, no peripheral edema CHEST: inspection of chest was normal GASTROINTESTINAL: soft, nontender, ND, no guarding : sherman in place draining clear yellow urine MUSCULOSKELETAL: generalized weakness, head is normocephalic and atraumatic, SKIN: warm and dry, NEUROLOGIC: CN 2-12 grossly intact, no sensory deficit, normal cognition, normal speech, no tremor PSYCHIATRIC: alert cooperative and oriented to person, place and time. Euthymic mood, makes good eye contact, language grossly intact, recent and remote memory grossly intact. Results & Data Results & Data Vital Signs (Past 12 Hours) Vital Signs Temp Pulse Pulse Pulse Resp BP BP 10/14/22 11:56 37.9 C H 69 16 134/77 10/14/22 07:44 36.7 C 70 20 135/77 10/14/22 07:33 36.4 C L 69 14 140/80 10/14/22 07:14 56 L 10/14/22 04:12 36.8 C 78 18 153/79 H Pulse Ox O2 Del Method 10/14/22 11:56 95 Room Air 10/14/22 07:44 94 Room Air 10/14/22 07:33 94 Room Air 10/14/22 07:14 10/14/22 04:12 97 Room Air Laboratory Results Short CBC 10/14/22 Range/Units 07:57 WBC 10.28 (4.8-10.8) K/ul Hgb 14.6 (14.0-18.0) g/dl Hct 40.9 L (42.0-52.0) % Plt Count 251 (130-400) K/uL BMP 10/14/22 07:57 Sodium 138 Potassium 3.5 Chloride 106 Carbon Dioxide 27 BUN 9 Creatinine 0.82 Glucose 151 H Calcium 8.8 Medications Administered Current Inpatient Medications Acetaminophen (Acetaminophen 325 Mg Tab) 650 mg PO Q4H PRN PRN Reason: Pain or Fever Stop: 11/12/22 00:07 Aspirin (Aspirin 81 Mg Ectab) 81 mg PO DAILY RADHA Stop: 11/12/22 08:59 Last Admin: 10/14/22 08:37 Dose: 81 mg Atenolol (Atenolol 25 Mg Tablet) 25 mg PO HS RADHA Stop: 11/12/22 20:59 Last Admin: 10/13/22 19:40 Dose: 25 mg Atorvastatin Calcium (Atorvastatin 40 Mg Tab) 40 mg PO QAM RADHA Stop: 11/12/22 08:59 Last Admin: 10/14/22 08:37 Dose: 40 mg Dextrose (Dextrose 50% 50 Ml Syringe) 25 - 50 ml IV UD PRN; Protocol PRN Reason: Hypoglycemia Protocol Stop: 11/11/22 23:31 Docusate Sodium (Docusate Sodium 100 Mg Cap) 100 mg PO BID ON LICENSE OF [facility] Stop: 11/12/22 20:59 Last Admin: 10/14/22 08:37 Dose: 100 mg Enoxaparin Sodium (Enoxaparin Inj 40 Mg/0.4 Ml Syr) 40 mg SQ QAM ON LICENSE OF [facility] Stop: 11/12/22 08:59 Last Admin: 10/14/22 08:38 Dose: 40 mg Glucagon (Glucagon For Inj 1 Mg Vial) 1 mg SQ UD PRN; Protocol PRN Reason: Hypoglycemia Protocol Stop: 11/11/22 23:31 Glucosamine Sulfate (Glucosamine Sulfate 500 Mg Cap) 500 mg PO DAILY ON LICENSE OF [facility] Stop: 11/12/22 08:59 Last Admin: 10/14/22 08:40 Dose: 500 mg Glucose (Glucose 10 Tab/Tube) 4 - 8 tab PO UD PRN; Protocol PRN Reason: Hypoglycemia Treatment Stop: 11/11/22 23:31 Glucose (Glucose 40% Gel 15 Gm Tube) 15 - 30 gm PO UD PRN; Protocol PRN Reason: Hypoglycemia Protocol Stop: 11/11/22 23:31 Promethazine HCl 12.5 mg/ (Sodium Chloride) 50.5 mls @ 202 mls/hr IV Q6H PRN PRN Reason: Nausea And Vomiting Stop: 11/11/22 21:19 Cefepime HCl 2,000 mg/ Syringe 20 mls @ 5 mls/min IV Q8H RADHA; Protocol Stop: 10/23/22 05:59 Last Admin: 10/14/22 13:21 Dose: 5 mls/min Insulin Aspart (Insulin Aspart Per Unit Charge) 0 units SC ACHS ON LICENSE OF [facility] Stop: 11/12/22 07:29 Last Admin: 10/14/22 12:32 Dose: 11 units Insulin Glargine (Lantus Per Unit Charge) 0 units SC BID ON LICENSE OF [facility]; Protocol Stop: 11/13/22 08:59 Losartan Potassium (Losartan Potassium 25 Mg Tab) 12.5 mg PO QAM ON LICENSE OF [facility] Stop: 11/12/22 08:59 Last Admin: 10/14/22 08:40 Dose: 12.5 mg Miscellaneous (Carbohydrates For Hypoglycemia ) 15 - 30 gm PO UD PRN PRN Reason: Hypoglycemia Protocol Stop: 11/11/22 23:31 Miscellaneous Information (Pharmacy Glycemic Mgmt Consult) 1 each N/A UD PRN PRN Reason: Consult Stop: 11/12/22 01:40 Oxycodone HCl (Oxycodone Hcl Ir 5 Mg Tab (Immediate Release)) 5 mg PO Q4H PRN PRN Reason: Pain Stop: 10/26/22 21:19 Phenazopyridine HCl (Phenazopyridine Hcl 100 Mg Tab) 100 mg PO TID PRN PRN Reason: Bladder pain Stop: 11/12/22 00:07 Polyethylene Glycol (Polyethylene (Miralax) 17 Gm Pack) 17 gm PO DAILY PRN PRN Reason: Constipation Stop: 11/12/22 13:51 Tamsulosin HCl (Tamsulosin Hcl 0.4 Mg Cap) 0.4 mg PO QAM ON LICENSE OF [facility] Stop: 11/12/22 13:59 Last Admin: 10/14/22 08:41 Dose: 0.4 mg (2) DKA (diabetic ketoacidosis) Diabetes mellitus complication detail: without coma Diabetes mellitus type: type 2 Qualified Code(s): E11.10 - Type 2 diabetes mellitus with ketoacidosis without coma
[2022-10-14] MEDS: ATENOLOL 25 MG TABLET PO SCH (20:46)
[2022-10-14] MEDS ORDERED: POTASSIUM CHLORIDE 10 MEQ TABCR PO STA (21:48)
--- NOTE | 2022-10-15 03:04 | Ultrasound Report ---
Exam(s): US VENOUS LEFT LOWER EXTREMITY EXAM: US Duplex Left Lower Extremity Veins CLINICAL HISTORY: Pain. TECHNIQUE: Real-time duplex ultrasound scan of the left lower extremity veins integrating B-mode two-dimensional vascular structure, Doppler spectral analysis, color flow Doppler imaging and compression. COMPARISON: No relevant prior studies available. FINDINGS: Deep veins: Unremarkable. No DVT in the visualized common femoral, femoral, proximal deep femoral or popliteal veins. The veins demonstrate normal color flow, are normally compressible, with normal phasic flow and/or augmentation response. The interrogated calf veins are patent. Superficial veins: Unremarkable. No thrombus in the saphenofemoral junction. Soft tissues: No acute findings. No popliteal cyst. IMPRESSION: No evidence for deep vein thrombosis involving the left lower extremity. Electronically signed by: Justin Croft MD 10/15/22 03:03 AM
[2022-10-15] MEDS: CEFEPIME 2,000 MG in SYRINGE 0 ML IV SCH ×3 (05:50→21:17)
[2022-10-15 07:37] LABS: Basophils # (auto) 0.07 K/uL (0-0.2); Basophils % (auto) 0.8 %; Eosinophils # (auto) 0.27 K/uL (0-0.50); Eosinophils % (auto) 3.1 %; Hematocrit (blood only) 43.1 % (42.0-52.0); Hemoglobin 15.1 g/dl (14.0-18.0); Immature Granulocytes # (auto) 0.04 K/uL (0.01-0.20); Immature Granulocytes % (auto) 0.5 %; Lymphocytes # (auto) 2.06 K/uL (1.2-3.4); Lymphocytes % (auto) 23.7 %; Mean Corpuscular Hemoglobin 30.9 pg (25.0-34.0); Mean Corpuscular Volume 88.3 fL (80.0-100.0); Mean Platelet Volume 10.7 fL (9.4-12.4); Monocytes % (auto) 9.2 %; Neutrophils # (auto) 5.44 K/uL (1.40-6.50); Neutrophils % (auto) 62.7 %; Platelet Count 259 K/uL (130-400); RDW Coefficient of Variation 12.4 % (11.5-14.5); RDW Standard Deviation 39.8 fL (36.4-46.3); Red Blood Count 4.88 M/uL (4.70-6.10); White Blood Count 8.68 K/ul (4.8-10.8)
[2022-10-15] MEDS: ASPIRIN 81 MG ECTAB PO SCH (08:05)
[2022-10-15] MEDS: TAMSULOSIN HCL 0.4 MG CAP PO SCH (08:06)
[2022-10-15] MEDS: LOSARTAN POTASSIUM 25 MG TAB PO SCH (08:06)
[2022-10-15] MEDS: GLUCOSAMINE SULFATE 500 MG CAP PO SCH (08:07)
[2022-10-15] MEDS: ATORVASTATIN 40 MG TAB PO SCH (08:07)
[2022-10-15] MEDS: DOCUSATE SODIUM 100 MG CAP PO SCH ×2 (08:08→20:34)
[2022-10-15] MEDS: ENOXAPARIN INJ 40 MG/0.4 ML SYR SQ SCH (08:10)
[2022-10-15 08:16] LABS: BUN Creatinine Ratio 16.9 (10-20); Est GFR (African American) 104.8 ml/min; Est GFR (Non-African American) 90.4 ml/min; Potassium 3.5 mmol/L (3.5-5.1)
[2022-10-15] MEDS: INSULIN ASPART PER UNIT CHARGE SC SCH ×4 (08:51→20:35)
[2022-10-15] MEDS: LANTUS PER UNIT CHARGE SC SCH (08:52)
[2022-10-15] MEDS ORDERED: LIDOCAINE 5% OINT 30 GM TUBE EXT PRN (11:52)
--- NOTE | 2022-10-15 13:06 | Hospitalist Progress Note ---
Date of Service October 15, 2022 Assessment & Plan (1) Severe sepsis: Plan: resuscitated, cont abx (2) DKA (diabetic ketoacidosis): Plan: off insulin drip and now euglycemic on basal bolus insulin. Pt was noncompliant with insulin for 2 months precipitating this event. Discussed with pharmacy who is recommending discharging on Lantus 40 units daily and metformin 500mg ER daily with evening meal. Metformin can be titrated as tolerated. 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 (3) Complicated UTI (urinary tract infection): Plan: cont abx with de-escalation based on cultures. On IV Cefepime still waiting on cultures to finalize, > 50k staph species (4) Acute urinary retention: Plan: likely related to UTI vs BPH. Sherman in place. Cont tamsulosin. Per Urology, TOV should be done as outpatient in one week will need to discuss with urology when patient to be discharged will trial lidocaine jelly due to pt c/o penile pain at insertion site (5) History of prostate cancer: Plan: f/u with urology for PSA (6) Hypertension: Plan: chronic, stable. Cont current medical therapy, losartan DVT prophy: Lovenox Full Code Dispo-PT/OT state independent, pt okay to go home, likely d/c home tomorrow Pt was seen and examined in collaboration with Dr. River, please see addendum A total of 55 was spent coordinating, documenting, and providing care for this patient excluding time spent in the performance of separately billed services. This included personally viewing all current laboratories and imaging studies, medication reconciliation, outpatient chart review, and discussion with specialists. Admission and Anticipated Discharge Date Admission Date: October 12, 2022 Supervising Physician Co-Signing Physician Notes I have seen and examined the patient and have discussed the case with the provider above. I agree with the assessment and plan as stated. Irrritated from lower leg pain, possibly neuropathy, and sherman catheter. Agreed for gabapentin trial and sherman TOV. Eating well and no electrolyte abnormalities on labwork this am. Physical exam as above. Cont plan per above and gabapentin trial. Cont flomax at discharge. DO Reed River 66 yo M admitted with DKA 2/2 sepsis 2/[address] for urinary retention He is very uncomfortable with this in today Describes pain in his lower extremities. Reviewed gabapentin side effects and he is willing to try Review of Systems Review of Systems: All systems reviewed & are unremarkable except as noted in HPI & below Results & Data Results & Data Vital Signs (Past 12 Hours) Vital Signs Temp Pulse Resp BP Pulse Ox O2 Del Method 10/15/22 07:36 36.3 C L 71 16 145/88 H 97 Room Air Laboratory Results Short CBC 10/15/22 Range/Units 06:43 WBC 8.68 (4.8-10.8) K/ul Hgb 15.1 (14.0-18.0) g/dl Hct 43.1 (42.0-52.0) % Plt Count 259 (130-400) K/uL BMP 10/15/22 06:43 Sodium 140 Potassium 3.5 Chloride 109 H Carbon Dioxide 23 BUN 14 Creatinine 0.83 Glucose 108 H Calcium 9.0 Medications Administered Current Inpatient Medications Acetaminophen (Acetaminophen 325 Mg Tab) 650 mg PO Q4H PRN PRN Reason: Pain or Fever Stop: 11/12/22 00:07 Last Admin: 10/15/22 00:29 Dose: 650 mg Aspirin (Aspirin 81 Mg Ectab) 81 mg PO DAILY RADHA Stop: 11/12/22 08:59 Last Admin: 10/15/22 08:05 Dose: 81 mg Atenolol (Atenolol 25 Mg Tablet) 25 mg PO HS RADHA Stop: 11/12/22 20:59 Last Admin: 10/15/22 20:34 Dose: 25 mg Atorvastatin Calcium (Atorvastatin 40 Mg Tab) 40 mg PO QAM RADHA Stop: 11/12/22 08:59 Last Admin: 10/15/22 08:07 Dose: 40 mg Dextrose (Dextrose 50% 50 Ml Syringe) 25 - 50 ml IV UD PRN; Protocol PRN Reason: Hypoglycemia Protocol Stop: 11/11/22 23:31 Docusate Sodium (Docusate Sodium 100 Mg Cap) 100 mg PO BID RADHA Stop: 11/12/22 20:59 Last Admin: 10/15/22 20:34 Dose: 100 mg Enoxaparin Sodium (Enoxaparin Inj 40 Mg/0.4 Ml Syr) 40 mg SQ QAM RADHA Stop: 11/12/22 08:59 Last Admin: 10/15/22 08:10 Dose: 40 mg Gabapentin (Gabapentin 300 Mg Cap) 300 mg PO HS [facility] Stop: 11/14/22 20:59 Last Admin: 10/15/22 20:35 Dose: 300 mg Glucagon (Glucagon For Inj 1 Mg Vial) 1 mg SQ UD PRN; Protocol PRN Reason: Hypoglycemia Protocol Stop: 11/11/22 23:31 Glucosamine Sulfate (Glucosamine Sulfate 500 Mg Cap) 500 mg PO DAILY RADHA Stop: 11/12/22 08:59 Last Admin: 10/15/22 08:07 Dose: 500 mg Glucose (Glucose 10 Tab/Tube) 4 - 8 tab PO UD PRN; Protocol PRN Reason: Hypoglycemia Treatment Stop: 11/11/22 23:31 Glucose (Glucose 40% Gel 15 Gm Tube) 15 - 30 gm PO UD PRN; Protocol PRN Reason: Hypoglycemia Protocol Stop: 11/11/22 23:31 Promethazine HCl 12.5 mg/ (Sodium Chloride) 50.5 mls @ 202 mls/hr IV Q6H PRN PRN Reason: Nausea And Vomiting Stop: 11/11/22 21:19 Cefepime HCl 2,000 mg/ Syringe 20 mls @ 5 mls/min IV Q8H RADHA; Protocol Stop: 10/23/22 05:59 Last Admin: 10/15/22 14:06 Dose: 5 mls/min Insulin Aspart (Insulin Aspart Per Unit Charge) 0 units SC ACHS [facility] Stop: 11/12/22 07:29 Last Admin: 10/15/22 20:35 Dose: Not Given Insulin Glargine (Lantus Per Unit Charge) 40 units SC DAILY [facility] Stop: 11/13/22 20:59 Last Admin: 10/15/22 08:52 Dose: 40 units Lidocaine (Lidocaine 5% Oint 30 Gm Tube) 1 appln EXT DAILY PRN PRN Reason: penile pain/cath insertion Stop: 11/14/22 11:51 Last Admin: 10/15/22 13:15 Dose: 1 appln Losartan Potassium (Losartan Potassium 25 Mg Tab) 12.5 mg PO QAM [facility] Stop: 11/12/22 08:59 Last Admin: 10/15/22 08:06 Dose: 12.5 mg Miscellaneous (Carbohydrates For Hypoglycemia ) 15 - 30 gm PO UD PRN PRN Reason: Hypoglycemia Protocol Stop: 11/11/22 23:31 Miscellaneous Information (Pharmacy Glycemic Mgmt Consult) 1 each N/A UD PRN PRN Reason: Consult Stop: 11/12/22 01:40 Phenazopyridine HCl (Phenazopyridine Hcl 100 Mg Tab) 100 mg PO TID PRN PRN Reason: Bladder pain Stop: 11/12/22 00:07 Polyethylene Glycol (Polyethylene (Miralax) 17 Gm Pack) 17 gm PO DAILY PRN PRN Reason: Constipation Stop: 11/12/22 13:51 Tamsulosin HCl (Tamsulosin Hcl 0.4 Mg Cap) [facility] Stop: 11/12/22 13:59 Last Admin: 10/15/22 08:06 Dose: 0.4 mg (2) DKA (diabetic ketoacidosis) Diabetes mellitus complication detail: without coma Diabetes mellitus type: type 2 Qualified Code(s): E11.10 - Type 2 diabetes mellitus with ketoacidosis without coma
[2022-10-15] MEDS ORDERED: GABAPENTIN 100 MG CAP PO ONE (14:30)
--- NOTE | 2022-10-15 14:39 | Pharmacy Report ---
Pharmacy Glycemic Short Note 2 - Date of Service October 15, 2022 - Glycemic Short BSG Results (Last 24 hours): 10/14/22 10/14/22 10/15/22 16:26 19:47 06:43 Glucose 108 H POC Glucose 128 H 148 H 10/15/22 10/15/22 08:05 12:12 Glucose POC Glucose 124 H 214 H OUTPATIENT ANTIDIABETIC REGIMEN: * Not taking anything x 3 months 2nd cost * Prior reported regimen * Janumet * Lantus 50 units BID * Novolog 30 units BID * HbA1c 14.6% on 10/12/22 ASSESSMENT: 10/15/22: * BSGs improved yesterday, ranging 128-214 mg/dL * Received 65 units of insulin (40 units of basal and 25 units of prandial/correctional bolus) * Plan is to discharge patient on simplified regimen (once daily basal and metformin) - will convert to once daily basal today 10/14/22: * BSGs elevated yesterday, ranging 147-304 mg/dL * Received 72 units of insulin plus additional through IV infusion * Fasting BSG of 161 mg/dL this morning * Will tighten Novolog carb ratio today and allow for increased basal today 10/13/22: * 66 yo M with T2DM currently not taking insulin 2nd cost admitted with hyperglycemia and possibly mild DKA. Despite high initial BSG of >800 mg/dL, not HHS as effective osmolality was only 300 mOsm (did not exceed 320 mOsm c/w w HHS). CO2 was however slightly low at 16 and anion gap was slightly elevated at 19. These have both normalized. T2DM diet now ordered * Insulin drip started initially, but now transitioned off and Lantus started this AM. * Unclear what insulin needs will be, but given high A1c, severe hyperglycemia, and higher reported prior outpatient doses, OK to structure regimen close to a weight-based severe stress estimate. Will only be slightly more loose on the carb ratio to begin. Will also scale Lantus in PM if BSG's decrease. Will add in two overnight checks tonight PLAN FOR INPATIENT GLYCEMIC CONTROL: * Hold outpatient oral diabetes medications * Basal insulin * Lantus 40 units SC daily * Bolus insulin * NovoLog ACHS (or Q6hrs if NPO). * Goal Range: Low 110 mg/dL - High 140 mg/dL * Correction Factor: 25 mg/dL/unit * Nutritional / Prandial insulin per carb ratio of 1 unit per 7 grams CHO consumed
[2022-10-15] MEDS: ATENOLOL 25 MG TABLET PO SCH (20:34)
[2022-10-15] MEDS ORDERED: GABAPENTIN 300 MG CAP PO SCH (21:00)
[2022-10-16] MEDS: CEFEPIME 2,000 MG in SYRINGE 0 ML IV SCH ×2 (05:34→14:12)
[2022-10-16 08:29] LABS: Basophils # (auto) 0.06 K/uL (0-0.2); Basophils % (auto) 0.7 %; Eosinophils # (auto) 0.25 K/uL (0-0.50); Hematocrit (blood only) 41.4 % (42.0-52.0); Hemoglobin 14.4 g/dl (14.0-18.0); Immature Granulocytes # (auto) 0.05 K/uL (0.01-0.20); Immature Granulocytes % (auto) 0.6 %; Lymphocytes # (auto) 1.51 K/uL (1.2-3.4); Lymphocytes % (auto) 18.1 %; Mean Corpuscular Hemoglobin 30.5 pg (25.0-34.0); Mean Corpuscular Hgb Conc 34.8 g/dL (32.0-36.0); Mean Corpuscular Volume 87.7 fL (80.0-100.0); Mean Platelet Volume 10.6 fL (9.4-12.4); Monocytes # (auto) 0.69 K/uL (0.11-0.59); Monocytes % (auto) 8.3 %; Neutrophils # (auto) 5.77 K/uL (1.40-6.50); Neutrophils % (auto) 69.3 %; Platelet Count 269 K/uL (130-400); RDW Coefficient of Variation 12.3 % (11.5-14.5); RDW Standard Deviation 39.4 fL (36.4-46.3); Red Blood Count 4.72 M/uL (4.70-6.10); White Blood Count 8.33 K/ul (4.8-10.8)
[2022-10-16 08:52] LABS: BUN Creatinine Ratio 17.3 (10-20); Creatinine Clr Calc Pharmacy 75.4 ml/min; Est GFR (African American) 91.4 ml/min; Est GFR (Non-African American) 78.9 ml/min; Potassium 3.5 mmol/L (3.5-5.1)
[2022-10-16] MEDS: LANTUS PER UNIT CHARGE SC SCH (09:08)
[2022-10-16] MEDS: INSULIN ASPART PER UNIT CHARGE SC SCH ×3 (09:09→17:34)
[2022-10-16] MEDS: ATORVASTATIN 40 MG TAB PO SCH (09:11)
[2022-10-16] MEDS: ASPIRIN 81 MG ECTAB PO SCH (09:11)
[2022-10-16] MEDS: ENOXAPARIN INJ 40 MG/0.4 ML SYR SQ SCH (09:12)
[2022-10-16] MEDS: GLUCOSAMINE SULFATE 500 MG CAP PO SCH (09:13)
[2022-10-16] MEDS: LOSARTAN POTASSIUM 25 MG TAB PO SCH (09:13)
[2022-10-16] MEDS: TAMSULOSIN HCL 0.4 MG CAP PO SCH (09:14)
[2022-10-16] MEDS: DOCUSATE SODIUM 100 MG CAP PO SCH (11:09)
--- NOTE | 2022-10-16 15:04 | Discharge Summary ---
Discharge Summary Date of Service October 16, 2022 Notes For Next Care Provider Patient admitted for DKA in setting of sepsis secondary to complicated urinary tract infection with urine culture growing greater than 50,000 coag negative Staphylococcus. He was started on IV insulin until anion gap closed and then transition to basal bolus regimen. Patient has been off insulin for several months due to cost. Coordinated with patient, for riders and military pay technician to obtain optimal discharge regimen that patient will be compliant with any can afford. Lantus 40 units daily in the morning as well as metformin 500 mg ER once daily. If tolerating metformin would recommend titrating up at follow-up appointment. He may also need titration of Lantus. Would recommend [facility] pharmacy referral for diabetic management. Medication Changes From Visit ---Diabetic Management: Lantus 40 units subcutaneous injection once daily. Metformin 500mg ER by mouth once daily. ---Antibiotic for urinary tract infection Cefdinir 300 mg twice daily for additional 5 days. Recommend taking a daily over the counter probiotic while on antibiotic therapy ---Urinary Retention Flomax 0.4mg by mouth once daily in a.m. ---Pain in legs Gabapentin 300mg at bedtime Admission HPI Per Admitting Provider History obtained from patient, family, and records. Medical history significant for nonocclusive CAD, hypertension, hyperlipidemia, DM 2 insulin requiring, prostate cancer postradiation, anxiety disorder, medication noncompliance. Patient stopped taking all his medications 3 months ago due to financial constraints and political reasons. He thought he could stop his insulin because he had significant weight loss few months ago. Patient noted worsening urinary retention today. Urinary retention usually relieved by bearing down on the commode. Usual loose stools. No headache, no chest pain, no SOB. Worsening dysuria. No hematuria. Patient felt warm. SBP to 230s upon arrival at the ER. BSG noted to be 800s at the ER. IV insulin initiated at the ER. Thornton catheter inserted after bladder residual noted to be greater than 800 cc. 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 Admission Exam Per Admitting Provider GENERAL: Comfortable, anxious, no respiratory distress SKIN: Normal color, warm HEENT: [place] palpebral conjunctivae, no ptosis, dry buccal mucosa NECK : Supple, no tenderness CHEST : CTA, no tenderness HEART : RRR, no obvious murmurs ABDOMEN: Some distention, minimal hypogastric tenderness EXTREMITIES : No LE swelling/tenderness, no other conspicuous deformities noted NEUROLOGIC : Coherent, no facial asymmetry, no other gross focality Principal Dx & Hospital Course #1 = Principal Diagnosis (1) Severe sepsis: (2) DKA (diabetic ketoacidosis): (3) Complicated UTI (urinary tract infection): (4) Acute urinary retention: (5) History of prostate cancer: (6) Hypertension: Plan This is a 66-year-old male with significant past medical history of chronic ischemic heart disease, hypertension, T2DM, hyperlipidemia, prostate cancer who presented to ED in DKA and severe sepsis. Patient was appropriately resuscitated and started on broad-spectrum antibiotics with IV cefepime. Urine culture grew greater than 50,000 coag negative staph species. His antibiotic regimen will be de-escalated to oral cefdinir 300 mg twice daily for additional 5 days on discharge. In regards to DKA he was treated with insulin drip and eventually transition to basal bolus regimen when acidosis resolved. Care was coordinated with patient and military pay technician to obtain an affordable and realistic diabetic regimen that patient will be adherent to. Prior to hospitalization he has stopped taking insulin due to cost and difficulty with regimen. Patient is being discharged on Lantus 40 units subcutaneous once daily as well as metformin 500 mg ER daily. It is likely that this regimen will need to be adjusted and titrated based on patient's blood sugars and he is aware of this. His hospital course was complicated with urinary retention requiring Thornton catheter placement. Urology was on board who recommended 1 week of bladder rest and trial of void as outpatient. Patient was very uncomfortable with Thornton catheter secondary to pain and therefore prior to discharge he underwent trial of void and so far has been voiding on his own successfully. He will continue oral Flomax and follow-up with urology as outpatient due to prior history of prostate cancer. On day of discharge he remained hemodynamically stable. All questions were answered and he offers no acute concerns or complaints. He feels confident that he will be able to adhere to current regimen and is interested in obtaining improve blood sugar control. Discharge Exam Gen: WD/WN, NAD, A&O x3 HEENT: Normocephalic, atraumatic, conjunctivae moist, sclerae anicteric, mucous membranes moist. Lung: Clear to Auscultation bilaterally, no wheezes/rales/rhonchi Heart: Regular rate, regular rhythm, no murmurs, rubs, or gallops Abdomen: Soft, NT, ND +BS x 4 Extremities: No edema Skin: Warm, no rash, negative turgor. Updated Medication List Medication Instructions Recorded Confirmed Type Lactobacillus acidophilus 1.5 mg 1,000 mmu cells PO DAILY 11/08/19 10/12/22 History (250 million cell) capsule (Probiotic Acidophilus) ascorbic acid (vitamin C) 500 mg 500 mg PO DAILY 11/08/19 10/12/22 History tablet (Vitamin C) aspirin 81 mg tablet,delayed 81 mg PO DAILY 11/08/19 10/12/22 History release ([place]uma Low Dose Aspirin) atenolol 50 mg tablet 25 mg PO HS 11/08/19 10/12/22 History atorvastatin 40 mg tablet 40 mg PO QAM 11/08/19 10/12/22 History fish, borage, flaxseed oils-omega 1 cap PO DAILY 11/08/19 10/12/22 History 3,6,9 comb no.1 1,200 mg capsule ([place] 3-6-9) unyggnyxsym-hfg-hkznqccsq-vitC 1 cap PO DAILY 11/08/19 10/12/22 History capsule hlovjzqa-pl-zgvay 300 mcg-K 60 1 tab PO DAILY 11/08/19 10/12/22 History mcg-lycop 600 mcg-lutein 300 mcg tablet (Centrum Silver Men) sildenafil 25 mg tablet (Viagra) 25 mg PO DAILY PRN Erectile 11/08/19 10/12/22 History Dysfunction telmisartan 20 mg tablet 10 mg PO QAM 11/08/19 10/12/22 History zinc 50 mg tablet 50 mg PO DAILY 11/08/19 10/12/22 History blood sugar diagnostic (OneTouch #100 ea 10/16/22 Rx Verio test strips) cefdinir 300 mg capsule 300 mg PO BID 5 days #10 caps 10/16/22 Rx gabapentin 300 mg capsule 300 mg PO HS #30 caps 10/16/22 Rx insulin glargine 100 unit/mL (3 40 - 50 unit (0.4 - 0.5 mL) subcut 10/16/22 Rx mL) subcutaneous pen (Lantus DAILY #15 mL Solostar U-100 Insulin) insulin syringe-needle U-100 1 mL #100 ea 10/16/22 Rx 31 gauge x 15/64" lancets 33 gauge (Josue Krueger #100 ea 10/16/22 Rx Plus Lancet) metformin 500 mg tablet,extended 500 mg PO DAILY #30 tabs 10/16/22 Rx release 24 hr tamsulosin 0.4 mg capsule 0.4 mg PO QAM #30 caps 10/16/22 Rx Hospital Stay Data Consultations 10/12/22 19:56 ED Decision to Admit Stat 10/13/22 00:08 Consult Urology Routine Diagnostic Imagining Performed Abdomen/Pelvis CT 10/12/22 19:42 Exam(s): CT ABDOMEN + PELVIS Without Contrast EXAM: CT Abdomen and Pelvis Without Intravenous Contrast CLINICAL HISTORY: Reason for exam: urinary retention, eval for obs uropathy. TECHNIQUE: Axial computed tomography images of the abdomen and pelvis without intravenous contrast. CTDI is 20.05 mGy and DLP is 948.03 mGy-cm. Automated exposure control was utilized for the study. A dose lowering technique was utilized adhering to the principles of ALARA. COMPARISON: No relevant prior studies available. FINDINGS: Lung bases: Unremarkable. No mass. No consolidation. ABDOMEN: Liver: Unremarkable. Gallbladder and bile ducts: Cholecystectomy. No ductal dilation. Pancreas: Unremarkable. No ductal dilation. Spleen: Unremarkable. No splenomegaly. Adrenals: Unremarkable. No mass. Kidneys and ureters: Unremarkable. No obstructing stones. No hydronephrosis. Stomach and bowel: Diverticulosis, without acute diverticulitis. No small bowel obstruction. No free intraperitoneal air. PELVIS: Appendix: Normal appendix. Bladder: Thornton catheter terminates in a decompressed urinary bladder with mild wall thickening. Correlate with urinalysis to exclude UTI. No stones. Reproductive: Prostate fiduciary markers. ABDOMEN and PELVIS: Intraperitoneal space: Unremarkable. No free air. No significant fluid collection. Bones/joints: Degenerative changes of the spine. No acute fracture. No dislocation. Soft tissues: Unremarkable. Vasculature: Atherosclerotic changes of the aorta. No abdominal aortic aneurysm. Lymph nodes: Unremarkable. No enlarged lymph nodes. IMPRESSION: 1. Normal appendix. 2. Thornton catheter terminates in a decompressed urinary bladder with mild wall thickening. Correlate with urinalysis to exclude UTI. 3. Cholecystectomy. 4. Diverticulosis, without acute diverticulitis. No small bowel obstruction. No free intraperitoneal air. Electronically signed by: Nelson Sung MD 10/12/22 21:54 PM Chest X-Ray 10/12/22 20:04 XR chest 1V portable CLINICAL HISTORY: hyponatremia TECHNIQUE: Single frontal radiograph of the chest was obtained. Comparison: Comparison is made to chest radiograph 01/16/1950 FINDINGS: No lines and tubes are seen. Calcified aortic knob is seen. The lungs are clear. No evidence of pleural effusion or pneumothorax. IMPRESSION: No acute chest disease. ACT 112: Negative or not required by law. Electronically signed by: Carlos Russell M.D. 10/13/2022 8:12 AM Venous Doppler Study 10/15/22 01:01 Exam(s): US VENOUS LEFT LOWER EXTREMITY EXAM: US Duplex Left Lower Extremity Veins CLINICAL HISTORY: Pain. TECHNIQUE: Real-time duplex ultrasound scan of the left lower extremity veins integrating B-mode two-dimensional vascular structure, Doppler spectral analysis, color flow Doppler imaging and compression. COMPARISON: No relevant prior studies available. FINDINGS: Deep veins: Unremarkable. No DVT in the visualized common femoral, femoral, proximal deep femoral or popliteal veins. The veins demonstrate normal color flow, are normally compressible, with normal phasic flow and/or augmentation response. The interrogated calf veins are patent. Superficial veins: Unremarkable. No thrombus in the saphenofemoral junction. Soft tissues: No acute findings. No popliteal cyst. IMPRESSION: No evidence for deep vein thrombosis involving the left lower extremity. Electronically signed by: Justin Croft MD 10/15/22 03:03 AM Pending Results Patient Have Any Pending Studies at Discharge: No Discharge Instructions Given to Patient (Per Discharging Provider) MEDICATION CHANGES: ---Diabetic Management: Lantus 40 units subcutaneous injection once daily. Metformin 500mg ER by mouth once daily. ---Antibiotic for urinary tract infection Cefdinir 300 mg twice daily for additional 5 days. Recommend taking a daily over the counter probiotic while on antibiotic therapy ---Urinary Retention Flomax 0.4mg by mouth once daily in a.m. ---Pain in legs Gabapentin 300mg at bedtime SUMMARY OF TEST RESULTS: You were admitted to hospital secondary to sepsis and diabetic ketoacidosis. You are initially treated with IV insulin regimen to reduce blood sugar. This is due to being off insulin for a few months as well as infection. You were treated with IV antibiotics for urinary tract infection and you will continue oral antibiotics as an outpatient for additional 5 days. You did have difficulty with urinary retention which may have been a result from infection or prostate enlargement. Your catheter has since been removed. We have simplified your diabetic regimen at discharge and it will likely need adjusted as an outpatient to obtain optimal blood sugar control. Your A1c was 14.6 PENDING TEST RESULTS: None RECOMMENDATIONS FOR FOLLOW-UP: Please follow-up with your primary care provider as scheduled. You likely will need further adjustments to your diabetic regimen to obtain optimal blood sugar control. Please check blood sugars 3x a day and keep a log of this. Take this log with you to your follow up appointments. Recommend a diet and exercise program as approved by your primary care provider for further assistance in blood sugar control. You will be provided handouts. Please complete antibiotic in its entirety. You will be receiving a call from Urology to establish care and an appointment to monitor your PSA in setting of prior prostate cancer. Recommend obtaining stress relief mechanisms as high stress levels can effect blood sugar. OTHER INSTRUCTIONS: Seek medical attention if you have: * temperature above 101 * chest pain or trouble breathing * abdominal pain, nausea, vomiting * diarrhea, dark stools or bloody stools * any unanswered questions or concerns Call 911 if symptoms are severe. Please take good care of yourself. It has been a pleasure taking care of you. Please take care of yourself. If you have any questions regarding your recent hospitalization please contact [facility] and request [facility] Hospitalist @ [phone]. Lissa Rogers PA-C Total Time Total Time Spent Total Time Spent (In Minutes): 60 minutes Supervising Physician Co-Signing Physician Notes Pt seen and examined by myself, Jade Hoffman MD on the day of service. Care was coordinated with Lissa Rogers PA-C. Please refer to her note for additional information.
--- NOTE | 2022-10-16 15:05 | Communication Note ---
Date of Service: October 15, 2022 Physical exam for date of encounter which is missing from current progress note. Physical exam from that date reflects the following: Gen: WD/WN, NAD, A&O x3, occassional wince in pain due to cath HEENT: Normocephalic, atraumatic, conjunctivae moist, sclerae anicteric, mucous membranes moist. Lung: Clear to Auscultation bilaterally, no wheezes/rales/rhonchi Heart: Regular rate, regular rhythm, no murmurs, rubs, or gallops Abdomen: Soft, NT, ND +BS x 4 Extremities: No edema Skin: Warm, no rash, negative turgor. : sherman in place Kari Rogers PA-C
== END 2022-10-16 18:09 | disposition home or self-care (01) | DRG 871 ==
LOC: ED 18:02 → SUATTDRO 22:51 → EDINP 22:51 → 2W 10-13 00:08 → 3N 10-14 22:24